=== PATIENT | male | born 1965 | race Caucasian/White ===

== ENCOUNTER 2017-08-14 17:13 | Emergency (ER) | payer SELFPAY ==
[2017-08-14] MEDS ORDERED: MECLIZINE HCL 12.5 MG TAB ONE (18:18)
[2017-08-14 18:35] LABS: Absolute Lymphocytes (CBC) 1.7 K/uL (0.7-4.9); Absolute Monocytes 0.4 K/uL (0.1-1.3); Absolute Neutrophil 5.1 K/uL (1.8-8.0); Basophils % 0.6 % (0-1.3); Hematocrit 45.2 % (39.6-49.0); MCH 31.2 pg (27.0-35.0); MCV 93.5 fL (80-100); MPV 9.3 fL (7.6-11.3); Monocytes % 5.6 % (3.3-12.3); RBC Red Blood Cell Count 4.83 M/uL (4.33-5.43)
[2017-08-14 18:39] LABS: Potassium 3.9 mEq/L (3.6-5.0)
[2017-08-14 18:45] LABS: Albumin 4.5 g/dL (3.2-5.5); Bilirubin Direct 0.1 mg/dL (0-0.2); Bilirubin Total 0.6 mg/dL (0.3-1.2); Protein, Total 7.9 g/dL (6.0-8.3)
--- NOTE | 2017-08-14 18:46 | RAD REPORT ---
EXAM DESCRIPTION: CT - Head Brain Wo Cont - 08/14/2017 6:31 pm CLINICAL HISTORY: Dizziness for 6 weeks COMPARISON: june 2016 TECHNIQUE: Computed axial tomography of the head was obtained. IV contrast was not requested. All CT scans are performed using dose optimization technique as appropriate and may include automated exposure control or mA/KV adjustment according to patient size. FINDINGS: An intracranial bleed is not seen . The ventricles are normal in caliber. No extra-axial fluid collection is noted. Fluid within the sinuses/ mastoids is not seen. IMPRESSION: No acute intracranial abnormality is seen. If patient's symptoms persist MRI of the bra in would be recommended.
--- NOTE | 2017-08-14 19:04 | ER ---
Nurse's Notes [facility] Name: Livan Pantoja Age: 52 yrs Sex: Male : 1965 Arrival Date: 08/14/2017 Time: 17:15 Bed 16 Private MD: Diagnosis: Vertigo Presentation: 08/14 17:15 Presenting complaint: Patient states: Dizziness x 6 weeks when standing or moving. aj Patient ambulated with steady gait to room. Transition of care: patient was not received from another setting of care. Onset of symptoms was June 21, 2017. Risk Assessment: Do you want to hurt yourself or someone else? Patient reports no desire to harm self or others. Care prior to arrival: None. 17:15 Method Of Arrival: Law Enforcement: April garcias 17:15 Acuity: MARYSOL 4 aj Triage Assessment: 17:19 General: Appears in no apparent distress. comfortable, Behavior is calm, cooperative, aj appropriate for age. Pain: Complains of pain in epigastric area, right upper quadrant and left upper quadrant. Neuro: Level of Consciousness is awake, alert, obeys commands, Oriented to person, place, time, situation, Herd Tester are equal bilaterally Moves all extremities. Full function Gait is steady, Speech is normal, Facial symmetry appears normal, Reports dizziness, since June 21. Respiratory: Airway is patent Respiratory effort is even, unlabored, Respiratory pattern is regular, symmetrical. GI: Reports upper abdominal pain, nausea. Derm: Skin is intact, is healthy with good turgor, Skin is pink, warm \T\ dry. normal. Historical: - Allergies: 17:19 PENICILLINS; aj - Home Meds: 17:19 naproxen 375 mg Oral tab 1 tab 2 times per day [Active]; ranitidine HCl 150 mg Oral cap aj 1 cap once daily [Active]; Tylenol PM Extra Strength 25-500 mg Oral tab 2 tabs nightly [Active]; - PMHx: 17:19 Hypertension; aj - PSHx: 17:19 None; aj - Immunization history:: Adult Immunizations up to date. - Social history:: Smoking status: Patient uses tobacco products, chewing tobacco. - Ebola Screening: : Patient negative for fever greater than or equal to 101.5 degrees Fahrenheit, and additional compatible Ebola Virus Disease symptoms Patient denies exposure to infectious person Patient denies travel to an Ebola-affected area in the 21 days before illness onset No symptoms or risks identified at this time. Screenin:14 Abuse screen: Denies threats or abuse. Denies injuries from another. Nutritional aj screening: No deficits noted. Tuberculosis screening: No symptoms or risk factors identified. Fall Risk None identified. Assessment: 19:14 Reassessment: see triage. aj Vital Signs: 17:19 BP 165 / 78; Pulse 89; Resp 16; Temp 97.9; Pulse Ox 97% on R/A; Weight 117.93 kg; aj Height 5 ft. 11 in. (180.34 cm); 17:19 Body Mass Index 36.26 (117.93 kg, 180.34 cm) aj ED Course: 17:15 Patient arrived in ED. aj 17:16 Triage completed. aj 17:19 Arm band placed on left wrist. Patient placed in an exam room. aj 17:23 Kishor Celeste PA is PHCP. jrDany 17:23 Nabor Fierro MD is Attending Physician. jr 18:14 Brigitte Abernathy, RN is Primary Nurse. aj 18:[address] 18:21 Initial lab(s) drawn, by ma, sent to lab. Inserted saline lock: 20 gauge in left 3 antecubital area, using aseptic technique. Blood collected. 18:32 CT Head Brain wo Cont In Process Unspecified. EDMS 19:14 Patient has correct armband on for positive identification. aj 19:14 No provider procedures requiring assistance completed. IV discontinued, intact, aj bleeding controlled, No redness/swelling at site. Pressure dressing applied. Administered Medications: 18:19 Drug: Meclizine 25 mg Route: PO; aj 19:13 Follow up: Response: No adverse reaction aj Outcome: 19:04 Discharge ordered by . jrDany 19:14 Discharged to Law Enforcement aj 19:14 Condition: good 19:14 Discharge instructions given to police, Instructed on discharge instructions, follow up and referral plans. Demonstrated understanding of instructions, follow-up care. 19:16 Patient left the ED. aj Signatures: Dispatcher [employer] EDMS Brigitte Abernathy, RN RN Kishor Pablo PA PA jr Candelaria Penny [facility]
--- NOTE | 2017-08-14 19:04 | EDPHYS ---
Physician Documentation [facility] Name: Livan Pantoja Age: 52 yrs Sex: Male : 1965 Arrival Date: 08/14/2017 Time: 17:15 Bed 16 Private MD: ED Physician Nabor Fierro HPI: 08/14 19:02 This 52 yrs old Male presents to ER via Law Enforcement with complaints of jr8 Dizziness. 19:02 The patient presents with dizziness. Onset: The symptoms/episode began/occurred jr8 gradually, 6 week(s) ago. Context: occurred at work, occurred while the patient was working. Modifying factors: The symptoms are alleviated by nothing, the symptoms are aggravated by movement of head, standing up, changing position. Associated signs and symptoms: The patient has no apparent associated signs or symptoms. Severity of symptoms: At their worst the symptoms were moderate in the emergency department the symptoms are unchanged. Patient's baseline: Neuro: alert and fully oriented, Motor: no deficits, Ambulation: walks without assistance, Speech: normal. The patient has experienced similar episodes in the past, several times. The patient has not recently seen a physician. Historical: - Allergies: 17:19 PENICILLINS; aj - Home Meds: 17:19 naproxen 375 mg Oral tab 1 tab 2 times per day [Active]; ranitidine HCl 150 mg Oral cap aj 1 cap once daily [Active]; Tylenol PM Extra Strength 25-500 mg Oral tab 2 tabs nightly [Active]; - PMHx: 17:19 Hypertension; aj - PSHx: 17:19 None; aj - Immunization history:: Adult Immunizations up to date. - Social history:: Smoking status: Patient uses tobacco products, chewing tobacco. - Ebola Screening: : Patient negative for fever greater than or equal to 101.5 degrees Fahrenheit, and additional compatible Ebola Virus Disease symptoms Patient denies exposure to infectious person Patient denies travel to an Ebola-affected area in the 21 days before illness onset No symptoms or risks identified at this time. ROS: 19:02 Eyes: Negative for injury, pain, redness, and discharge, ENT: Negative for injury, jr8 pain, and discharge, Neck: Negative for injury, pain, and swelling, Cardiovascular: Negative for chest pain, palpitations, and edema, Respiratory: Negative for shortness of breath, cough, wheezing, and pleuritic chest pain, Abdomen/GI: Negative for abdominal pain, nausea, vomiting, diarrhea, and constipation, Back: Negative for injury and pain, MS/Extremity: Negative for injury and deformity, Skin: Negative for injury, rash, and discoloration. 19:02 Neuro: Positive for dizziness, Negative for altered mental status, gait disturbance, headache, hearing loss, loss of consciousness, numbness, seizure activity, speech changes, syncope, near syncope, tingling, tinnitus, tremor, visual changes, weakness. Exam: 19:02 Head/Face: Normocephalic, atraumatic. Eyes: Pupils equal round and reactive to light, jr8 extra-ocular motions intact. Lids and lashes normal. Conjunctiva and sclera are non-icteric and not injected. Cornea within normal limits. Periorbital areas with no swelling, redness, or edema. ENT: Nares patent. No nasal discharge, no septal abnormalities noted. Tympanic membranes are normal and external auditory canals are clear. Oropharynx with no redness, swelling, or masses, exudates, or evidence of obstruction, uvula midline. Mucous membranes moist. Neck: Trachea midline, no thyromegaly or masses palpated, and no cervical lymphadenopathy. Supple, full range of motion without nuchal rigidity, or vertebral point tenderness. No Meningismus. Cardiovascular: Regular rate and rhythm with a normal S1 and S2. No gallops, murmurs, or rubs. Normal PMI, no JVD. No pulse deficits. Respiratory: Lungs have equal breath sounds bilaterally, clear to auscultation and percussion. No rales, rhonchi or wheezes noted. No increased work of breathing, no retractions or nasal flaring. Abdomen/GI: Soft, non-tender, with normal bowel sounds. No distension or tympany. No guarding or rebound. No evidence of tenderness throughout. Back: No spinal tenderness. No costovertebral tenderness. Full range of motion. Skin: Warm, dry with normal turgor. Normal color with no rashes, no lesions, and no evidence of cellulitis. MS/ Extremity: Pulses equal, no cyanosis. Neurovascular intact. Full, normal range of motion. Neuro: Awake and alert, GCS 15, oriented to person, place, time, and situation. Cranial nerves II-XII grossly intact. Motor strength 5/5 in all extremities. Sensory grossly intact. Cerebellar exam normal. Normal gait. Vital Signs: 17:19 BP 165 / 78; Pulse 89; Resp 16; Temp 97.9; Pulse Ox 97% on R/A; Weight 117.93 kg; aj Height 5 ft. 11 in. (180.34 cm); 17:19 Body Mass Index 36.26 (117.93 kg, 180.34 cm) aj MDM: 17:23 Patient medically screened. 8 19:03 Differential diagnosis: cardiac arrhythmia, CVA, idiopathic dizziness, vertigo, kidney jr8 failure, hyperglycemia, electrolyte imbalance . Data reviewed: vital signs, nurses notes, lab test result(s), radiologic studies, CT scan, and as a result, I will discharge patient. Data interpreted: Pulse oximetry: on room air is 97 %. Interpretation: normal. Counseling: I had a detailed discussion with the patient and/or guardian regarding: the historical points, exam findings, and any diagnostic results supporting the discharge/admit diagnosis, lab results, radiology results, the need for outpatient follow up, a neurologist, to return to the emergency department if symptoms worsen or persist or if there are any questions or concerns that arise at home. 08/14 18:06 Order name: CBC with Diff; Complete Time: 18:41 [facility] 08/14 18:06 Order name: Basic Metabolic Panel; Complete Time: 19:01 [facility] 08/14 18:06 Order name: LFT's; Complete Time: 19:01 8 08/14 18:06 Order name: CT Head Brain wo Cont; Complete Time: 19:01 [facility] 08/14 18:46 Order name: Urine Dipstick--Ancillary (enter results) bd 08/14 18:06 Order name: IV; Complete Time: 18:19 [facility] 08/14 18:06 Order name: Urine Dipstick-Ancillary (obtain specimen); Complete Time: 19:11 [facility] Administered Medications: 18:19 Drug: Meclizine 25 mg Route: PO; aj 19:13 Follow up: Response: No adverse reaction aj Disposition: 08/14/17 19:04 Discharged to Home. Impression: Vertigo . - Condition is Stable. - Discharge Instructions: Benign Positional Vertigo, Vertigo. - Medication Reconciliation Form, Thank You Letter, Antibiotic Education, Prescription Opioid Use form. - Follow up: Private Physician; When: 2 - 3 days; Reason: Recheck today's complaints, Continuance of care, Re-evaluation by your physician. - Problem is new. - Symptoms have improved. Addendum: 08/19/2017 15:24 Co-signature as Attending Physician, Nabor Fierro MD I agree with the assessment and k dr plan of care. Signatures: Dispatcher [employer] EDBrigitte Cabello RN RN aj Rittger, Kevin, MD MD kdr Roszak, Josh, PA PA jr8 Corrections: (The following items were deleted from the chart) 08/14 19:16 19:04 08/14/2017 19:04 Discharged to Home. Impression: Vertigo . Condition is Stable. aj Forms are Medication Reconciliation Form, Thank You Letter, Antibiotic Education, Prescription Opioid Use. Follow up: Private Physician; When: 2 - 3 days; Reason: Recheck today's complaints, Continuance of care, Re-evaluation by your physician. Problem is new. Symptoms have improved. jr8
[2017-08-14 19:26] LABS: Urine Blood TRACE (NEG); Urine Glucose NEGATIVE (NEG); Urine Protein 1+ (NEG); Urine Specific Gravity 1.025 (1.005-1.030); Urine pH 5.5 (5.0-7.0)
[2017-08-14 20:57] VITALS: BP 165/78; TEMP 97.9; O2SAT 97
== END 2017-08-14 19:16 | disposition home or self-care (01) ==
LOC: ER 17:13
DX: R42 Dizziness and giddiness (principal); I10 Essential (primary) hypertension; Z72.0 Tobacco use; Z88.0 Allergy status to penicillin
CPT/HCPCS: 36415; 70450; 80048; 80076; 81003; 85025; 99284

== ENCOUNTER 2018-12-22 15:55 | Emergency (ER) | payer SELFPAY ==
[2018-12-22] MEDS ORDERED: ASPIRIN 81 MG CHEWABLE TABLET ONE (16:45)
[2018-12-22] MEDS ORDERED: NA CHLORIDE 0.9% 1,000 ML ONE (16:45)
[2018-12-22] MEDS ORDERED: ONDANSETRON 4 MG/2 ML VIAL ONE (16:48)
[2018-12-22 16:49] LABS: Protime INR 0.96
[2018-12-22 16:51] LABS: Absolute Lymphocytes (CBC) 1.4 K/uL (0.7-4.9); Basophils % 0.8 % (0-1.3); Hematocrit 43.6 % (39.6-49.0); Lymphocytes % 19.8 % (15.3-44.8); MPV 9.1 fL (7.6-11.3); RBC Red Blood Cell Count 4.71 M/uL (4.33-5.43)
[2018-12-22 17:12] LABS: ALT/SGPT 36 U/L (12-78); AST/SGOT 25 U/L (15-37); Albumin 3.7 g/dL (3.4-5.0); Alkaline Phosphatase 97 U/L (45-117); BUN Blood Urea Nitrogen 11 mg/dL (7-18); Bicarbonate 27 mmol/L (21-32); Bilirubin Direct 0.2 mg/dL (0-0.2); Bilirubin Total 0.7 mg/dL (0.2-1.0); Glucose Level 94 mg/dL (74-106); Lipase 113 U/L (73-393); Magnesium 2.2 mg/dL (1.8-2.4); NT PRO-BNP 115 pg/mL (<125); Potassium 3.7 mmol/L (3.5-5.1); Protein, Total 7.5 g/dL (6.4-8.2); Sodium Level 138 mmol/L (136-145); Troponin (Emerg Dept Use Only) < 0.02 ng/mL (0.0-0.045)
--- NOTE | 2018-12-22 17:21 | RAD REPORT ---
EXAM DESCRIPTION: RAD - Chest Single View - 12/22/2018 5:12 pm CLINICAL HISTORY: CHEST PAIN Chest pain. COMPARISON: Chest Single View dated 06/24/2016; CHEST SINGLE VIEW dated 11/20/2012; CHEST SINGLE VIEW dated 11/19/2012; CHEST SINGLE VIEW dated 10/31/2012 FINDINGS: Portable technique limits examination quality. The lungs are grossly clear. The heart is normal in size. No displaced fractures. IMPRESSION: No acute intrathoracic process suspected.
--- NOTE | 2018-12-22 18:27 | RAD REPORT ---
EXAM DESCRIPTION: CTAbdomen Pelvis W Contrast - 12/22/2018 6:17 pm CLINICAL HISTORY: Abdominal pain. N/V/D;Abd pain COMPARISON: No comparisons TECHNIQUE: Biphasic CT imaging of the abdomen and pelvis was performed with 100 ml non-ionic IV cont rast. All CT scans are performed using dose optimization technique as appropriate and may include automated exposure control or mA/KV adjustment according to patient size. FINDINGS: The lung bases are clear. The liver, spleen, pancreas, adrenal glands and kidneys are within normal limits. No bowel obstruction, free air, free fluid or abscess. Sigmoid diverticulosis coli is present without diverticulitis. The appendix is normal. No evidence of significant lymphadenopathy. No suspicious bony findings. IMPRESSION: No acute intra-abdominal or pelvic finding. Sigmoid diverticulosis coli without diverticulitis.
--- NOTE | 2018-12-22 20:14 | ER ---
Nurse's Notes [facility] Name: Livan Pantoja Age: 53 yrs Sex: Male : 1965 Arrival Date: 12/22/2018 Time: 15:59 Bed 7 Private MD: Diagnosis: Chest pain, unspecified;Vomiting;Diarrhea, unspecified Presentation: 12/22 16:04 Presenting complaint: Patient states: N/V/D for the last three days, panic attack with la1 chest pain this morning. Transition of care: patient was not received from another setting of care. Onset of symptoms was December 22, 2018. Risk Assessment: Do you want to hurt yourself or someone else? Patient reports no desire to harm self or others. Initial Sepsis Screen: Does the patient meet any 2 criteria? No. Patient's initial sepsis screen is negative. Does the patient have a suspected source of infection? No. Patient's initial sepsis screen is negative. Care prior to arrival: None. 16:04 Method Of Arrival: Ambulatory la1 16:04 Acuity: MARYSOL 3 la1 Historical: - Allergies: 16:05 PENICILLINS; la1 - Home Meds: 20:19 naproxen 375 mg Oral tab 1 tab 2 times per day [Active]; ranitidine HCl 150 mg Oral cap ak1 1 cap once daily [Active]; Tylenol PM Extra Strength 25-500 mg Oral tab 2 tabs nightly [Active]; - PMHx: 16:05 Hypertension; la1 - PSHx: 20:19 None; ak1 - Immunization history:: Adult Immunizations up to date. - Social history:: Smoking status: Patient/guardian denies using tobacco. - Ebola Screening: : No symptoms or risks identified at this time. Screenin:07 Abuse screen: Denies threats or abuse. Denies injuries from another. Nutritional sv screening: No deficits noted. Tuberculosis screening: No symptoms or risk factors identified. Fall Risk None identified. Assessment: 16:35 General: Appears in no apparent distress. uncomfortable, well developed, Behavior is sv calm, cooperative, appropriate for age. Pain: Denies pain. Neuro: Level of Consciousness is awake, alert, obeys commands, Oriented to person, place, time, situation, Moves all extremities. Full function Gait is steady, Speech is normal, Reports numbness in palmar aspect of distal phalanx of right middle finger. Cardiovascular: Rhythm is sinus bradycardia. Respiratory: Airway is patent Respiratory effort is even, unlabored, Respiratory pattern is regular, symmetrical. GI: Abdomen is round Reports diarrhea, nausea, vomiting. Derm: Skin is pink, warm \T\ dry. 18:10 Reassessment: Patient appears in no apparent distress at this time. Patient and/or sv family updated on plan of care and expected duration. Pain level reassessed. Patient is alert, oriented x 3, equal unlabored respirations, skin warm/dry/pink. 18:32 Reassessment: Patient appears in no apparent distress at this time. Patient and/or sv family updated on plan of care and expected duration. Pain level reassessed. Patient is alert, oriented x 3, equal unlabored respirations, skin warm/dry/pink. 19:35 General: Appears in no apparent distress. comfortable, well developed, Behavior is ak1 calm, cooperative, appropriate for age. Neuro: Level of Consciousness is awake, alert, obeys commands, Oriented to person, place, time, situation, Moves all extremities. Full function Speech is normal. Cardiovascular: Rhythm is sinus rhythm with unifocal PVCs. Respiratory: Airway is patent Respiratory effort is even, unlabored, Respiratory pattern is regular, symmetrical. GI: Abdomen is round non-distended, Bowel sounds present X 4 quads. : No signs and/or symptoms were reported regarding the genitourinary system. EENT: No signs and/or symptoms were reported regarding the EENT system. Derm: Skin is pink, warm \T\ dry. Skin temperature is warm. Musculoskeletal: No signs and/or symptoms reported regarding the musculoskeletal system. 19:37 Reassessment: pt tolerated water for PO challenge, provider notified. ak1 20:26 Reassessment: Patient and/or family updated on plan of care and expected duration. Pain ea level reassessed. Patient is alert, oriented x 3, equal unlabored respirations, skin warm/dry/pink. Discharge instruction given to patient, verbalized the understanding of instruction. Pt left ED ambulatory. Vital Signs: 16:05 BP 164 / 87; Pulse 62; Resp 16; Temp 97.4; Pulse Ox 100% on R/A; Weight 113.4 kg; la1 Height 5 ft. 11 in. (180.34 cm); 17:00 BP 145 / 74; Pulse 61; Resp 16; Pulse Ox 98% on R/A; sv 17:50 BP 146 / 71; Pulse 62; Resp 16; Pulse Ox 98% ; sv 18:32 BP 144 / 78; Pulse 60; Resp 17; Pulse Ox 97% on R/A; sv 19:35 BP 137 / 75; Pulse 60; Resp 18; Temp 98.1; Pulse Ox 97% on R/A; Pain 2/10; ak1 20:18 BP 125 / 72; Pulse 58; Resp 17; Temp 98.0; Pulse Ox 97% on R/A; ak1 16:05 Body Mass Index 34.87 (113.40 kg, 180.34 cm) la1 ED Course: 15:59 Patient arrived in ED. mr 16:04 Triage completed. la1 16:05 Arm band placed on left wrist. la1 16:07 Suzi Gunn, RN is Primary Nurse. sv 16:07 Patient has correct armband on for positive identification. Bed in low position. Call sv light in reach. Door closed. Head of bed elevated. 16:08 Awaiting ED provider evaluation. sv 16:10 Corby Broderick PA is PHCP. cp 16:10 Nabor Fierro MD is Attending Physician. cp 16:34 EKG done, by corrosion control technician. reviewed by Corby GRUBER. sm3 16:35 Inserted saline lock: 20 gauge in right antecubital area, using aseptic technique. sv Blood collected. Flushed right antecubital with 5 ml normal saline. 16:57 Awaiting lab results. sv 17:13 XRAY Chest (1 view) In Process Unspecified. EDMS 18:[address] via wheelchair. sv 18:18 CT Abd/Pelvis - IV Contrast Only In Process Unspecified. EDMS 19:05 Primary Nurse role handed off by Suzi Gunn, IVÁN sv 19:20 Lisa Mancini, IVÁN is Primary Nurse. ak1 19:35 Troponin (emerg Dept Use Only): draw \T\ 1935 Sent. ak1 20:19 No provider procedures requiring assistance completed. ak1 20:23 IV discontinued, intact, bleeding controlled, No redness/swelling at site. Pressure ea dressing applied. Administered Medications: 16:53 Drug: Zofran 4 mg Route: IVP; Site: right antecubital; sv 17:22 Follow up: Response: No adverse reaction sv 16:53 Drug: Aspirin Chewable Tablet 81 mg {Note: Pt stated he took 3 81 mg tabs this sv morning.} Route: PO; 17:21 Follow up: Response: No adverse reaction sv 16:53 Drug: NS 0.9% 1000 ml Route: IV; Rate: 1000 ml/hr; Site: right antecubital; sv 20:27 Follow up: Response: No adverse reaction; IV Status: Completed infusion; IV Intake: ea 700ml Intake: 20:27 IV: 700ml; Total: 700ml. ea Outcome: 20:13 Discharge ordered by MD. cp 20:26 Discharged to home ambulatory. ea 20:26 Condition: stable 20:26 Discharge instructions given to patient, Instructed on discharge instructions, follow up and referral plans. medication usage, Demonstrated understanding of instructions, follow-up care, medications, Prescriptions given X 1. 20:27 Patient left the ED. ea Signatures: Dispatcher [employer] EDSuzi Waite, RN IVÁN olvera Christine Jolly, Chris, RN RN [email or web address] Lisa Mancini, RN RN [email or web address] Corby Broderick, ALLYN PA Chayito Ogden, RN Bibiana Simmons [email or web address]
--- NOTE | 2018-12-22 20:14 | EDPHYS ---
Physician Documentation [facility] Name: Livan Pantoja Age: 53 yrs Sex: Male : 1965 Arrival Date: 12/22/2018 Time: 15:59 Bed 7 Private MD: ED Physician Nabor Fierro HPI: 12/22 16:30 This 53 yrs old Male presents to ER via Ambulatory with complaints of cp Vomiting. 16:30 The patient or guardian reports chest pain that is located primarily in the anterior cp chest wall, left. Onset: today, 2 separate episodes that have now resolved. 16:30 The patient presents to the emergency department with nausea, that is mild, vomiting, cp that is intermittent, diarrhea, that is intermittent. Onset: The symptoms/episode began/occurred 3 day(s) ago. Possible causes: unknown. Patient reports he believes chest pain was due to anxiety, but wanted to be checked out. Historical: - Allergies: 16:05 PENICILLINS; la1 - Home Meds: 20:19 naproxen 375 mg Oral tab 1 tab 2 times per day [Active]; ranitidine HCl 150 mg Oral cap ak1 1 cap once daily [Active]; Tylenol PM Extra Strength 25-500 mg Oral tab 2 tabs nightly [Active]; - PMHx: 16:05 Hypertension; la1 - PSHx: 20:19 None; ak1 - Immunization history:: Adult Immunizations up to date. - Social history:: Smoking status: Patient/guardian denies using tobacco. - Ebola Screening: : No symptoms or risks identified at this time. ROS: 16:38 Eyes: Negative for injury, pain, redness, and discharge. cp 16:38 Constitutional: Negative for body aches, chills, fever, poor PO intake. 16:38 ENT: Negative for drainage from ear(s), ear pain, sore throat, difficulty swallowing, difficulty handling secretions. 16:38 Cardiovascular: Positive for chest pain, Negative for edema, palpitations. 16:38 Respiratory: Negative for cough, shortness of breath, wheezing. 16:38 Abdomen/GI: Positive for nausea, vomiting, and diarrhea, Negative for constipation, anorexia, dysphagia, black/tarry stool, rectal bleeding. 16:38 Back: Negative for pain at rest, pain with movement. 16:38 : Negative for urinary symptoms. 16:38 Skin: Negative for cellulitis, rash. 16:38 Neuro: Negative for altered mental status, dizziness, headache, syncope, weakness. 16:38 All other systems are negative. Exam: 16:37 ECG was reviewed by the Attending Physician. cp 16:42 Constitutional: The patient appears in no acute distress, alert, awake, cp non-diaphoretic, non-toxic, well developed, well nourished. 16:42 Head/Face: Normocephalic, atraumatic. cp 16:42 Eyes: Periorbital structures: appear normal, Conjunctiva: normal, no exudate, no injection, Sclera: no appreciated abnormality, Lids and lashes: appear normal, bilaterally. 16:42 ENT: External ear(s): are unremarkable, Nose: is normal, Mouth: is normal, Posterior pharynx: is normal, airway is patent, no erythema, no exudate. 16:42 Neck: ROM/movement: is normal, is supple, without pain, no range of motions limitations, no nuchal rigidity. 16:42 Chest/axilla: Inspection: normal, Palpation: is normal, no crepitus, no tenderness. 16:42 Cardiovascular: Rate: normal, Rhythm: regular, Edema: is not appreciated, JVD: is not appreciated. 16:42 Respiratory: the patient does not display signs of respiratory distress, Respirations: normal, no use of accessory muscles, no retractions, no splinting, no tachypnea, labored breathing, is not present, Breath sounds: are clear throughout, no decreased breath sounds, no stridor, no wheezing. 16:42 Abdomen/GI: Inspection: abdomen appears normal, Bowel sounds: active, all quadrants, Palpation: soft, in all quadrants, mild abdominal tenderness, in all quadrants, rebound tenderness, is not appreciated, voluntary guarding, is not appreciated, involuntary guarding, is not appreciated. 16:42 Back: pain, is absent, ROM is normal. 16:42 Skin: no rash present. 16:42 Neuro: Orientation: to person, place \T\ time. Mentation: is normal, Motor: moves all fours, strength is normal. 19:35 ECG was reviewed by the Attending Physician. cp Vital Signs: 16:05 BP 164 / 87; Pulse 62; Resp 16; Temp 97.4; Pulse Ox 100% on R/A; Weight 113.4 kg; la1 Height 5 ft. 11 in. (180.34 cm); 17:00 BP 145 / 74; Pulse 61; Resp 16; Pulse Ox 98% on R/A; sv 17:50 BP 146 / 71; Pulse 62; Resp 16; Pulse Ox 98% ; sv 18:32 BP 144 / 78; Pulse 60; Resp 17; Pulse Ox 97% on R/A; sv 19:35 BP 137 / 75; Pulse 60; Resp 18; Temp 98.1; Pulse Ox 97% on R/A; Pain 2/10; ak1 20:18 BP 125 / 72; Pulse 58; Resp 17; Temp 98.0; Pulse Ox 97% on R/A; ak1 16:05 Body Mass Index 34.87 (113.40 kg, 180.34 cm) la1 MDM: 16:16 Patient medically screened. cp 20:10 The patient was not given aspirin in the Emergency Department. Patient reports taking cp aspirin within the past 24 hours. 20:10 Data reviewed: vital signs, nurses notes, lab test result(s), EKG, radiologic studies, cp CT scan, plain films. Test interpretation: by ED physician or midlevel provider: ECG, chest xray negative for infiltrates. Counseling: I had a detailed discussion with the patient and/or guardian regarding: the historical points, exam findings, and any diagnostic results supporting the discharge/admit diagnosis, lab results, radiology results, the need for outpatient follow up, a family practitioner, to return to the emergency department if symptoms worsen or persist or if there are any questions or concerns that arise at home. Response to treatment: the patient's symptoms have markedly improved after treatment, VSS. No chest pain reported by patient while in ED and vomiting resolved. Will discharge to home for continued monitoring. 12/22 16:25 Order name: Basic Metabolic Panel; Complete Time: 17:53 cp 12/22 17:53 Interpretation: Normal except: CA 8.3. cp 12/22 16:25 Order name: CBC with Diff; Complete Time: 17:54 cp 12/22 17:54 Interpretation: Normal except: EOSINOPHIL % 5.1. cp 12/22 16:25 Order name: LFT's; Complete Time: 17:53 cp 12/22 17:55 Interpretation: Normal except: GLOB 3.8; A/G 1.0. cp 12/22 16:25 Order name: Magnesium; Complete Time: 17:53 cp 12/22 16:25 Order name: NT PRO-BNP; Complete Time: 17:53 cp 12/22 16:25 Order name: PT-INR cp 12/22 16:25 Order name: Troponin (emerg Dept Use Only); Complete Time: 17:53 cp 12/22 16:25 Order name: XRAY Chest (1 view); Complete Time: 17:53 cp 12/22 17:56 Interpretation: Report review. cp 12/22 16:25 Order name: Lipase; Complete Time: 17:53 cp 12/22 17:59 Interpretation: LIP 113; Reviewed. 12/22 18:01 Order name: Troponin (emerg Dept Use Only): draw \T\ 1934 sv 12/22 18:02 Order name: CT Abd/Pelvis - IV Contrast Only; Complete Time: 18:57 cp 12/22 16:25 Order name: EKG; Complete Time: 16:26 cp 12/22 16:25 Order name: Cardiac monitoring; Complete Time: 16:54 cp 12/22 16:25 Order name: EKG - Nurse/Tech; Complete Time: 16:54 cp 12/22 16:25 Order name: IV Saline Lock; Complete Time: 16:54 cp 12/22 16:25 Order name: Labs collected and sent; Complete Time: 16:54 cp 12/22 16:25 Order name: O2 Per Protocol; Complete Time: 16:54 cp 12/22 16:25 Order name: O2 Sat Monitoring; Complete Time: 16:54 cp 12/22 17:59 Order name: PO challenge; Complete Time: 19:29 cp 12/22 18:01 Order name: EKG - Nurse/Tech: to be done \T; Complete Time: 19:35 sv EC:37 Rate is 61 beats/min. Rhythm is regular. NJ interval is normal. QRS interval is normal. cp QT interval is normal. Interpreted by me. Reviewed by me. 19:35 Rate is 64 beats/min. Rhythm is regular. NJ interval is normal. QRS interval is normal. cp QT interval is normal. Interpreted by me. Reviewed by me. Administered Medications: 16:53 Drug: Zofran 4 mg Route: IVP; Site: right antecubital; sv 17:22 Follow up: Response: No adverse reaction sv 16:53 Drug: Aspirin Chewable Tablet 81 mg {Note: Pt stated he took 3 81 mg tabs this sv morning.} Route: PO; 17:21 Follow up: Response: No adverse reaction sv 16:53 Drug: NS 0.9% 1000 ml Route: IV; Rate: 1000 ml/hr; Site: right antecubital; sv 20:27 Follow up: Response: No adverse reaction; IV Status: Completed infusion; IV Intake: ea 700ml Disposition: 12/22/18 20:13 Discharged to Home. Impression: Chest pain, unspecified, Vomiting, Diarrhea, unspecified. - Condition is Stable. - Discharge Instructions: Diverticulosis, Food Choices to Help Relieve Diarrhea, Adult, Nonspecific Chest Pain, Diarrhea, Adult, Aspirin and Your Heart, Vomiting, Adult. - Prescriptions for Zofran 4 mg Oral Tablet - take 1 tablet by ORAL route every 12 hours As needed; 20 tablet. - Medication Reconciliation Form, Thank You Letter, Antibiotic Education, Prescription Opioid Use form. - Follow up: Private Physician; When: 2 - 3 days; Reason: Recheck today's complaints. - Problem is new. - Symptoms have improved. Signatures: Dispatcher [employer] Suzi Barney RN Chris Worthy RN RN la1 Lisa Mancini RN RN ak1 Corby Broderick PA PA cp Antunez, Elena, RN RN ea Corrections: (The following items were deleted from the chart) 17:53 17:53 Normal except. cp cp 20:27 20:13 12/22/2018 20:13 Discharged to Home. Impression: Chest pain, unspecified; ea Vomiting; Diarrhea, unspecified. Condition is Stable. Forms are Medication Reconciliation Form, Thank You Letter, Antibiotic Education, Prescription Opioid Use. Follow up: Private Physician; When: 2 - 3 days; Reason: Recheck today's complaints. Problem is new. Symptoms have improved. cp
[2018-12-22 21:02] VITALS: O2SAT 97
[2018-12-22 21:05] VITALS: BP 125/72; TEMP 98
--- NOTE | 2018-12-23 05:15 | EKG ---
Test Date: 2018-12-22 Test Time: 16:31:01 Tank Bottom Assembler: BUZZ MEASUREMENT RESULTS: Intervals: Rate: 61 WV: 166 QRSD: 98 QT: 396 QTc: 398 [place]: P: 35 WV: 166 QRS: 57 T: 49 INTERPRETIVE STATEMENTS: Normal sinus rhythm Normal ECG Compared to ECG 06/25/2016 07:24:52 Sinus bradycardia no longer present Electronically Signed On 12-23-18 05:14:07 CDT by Fer Armstrong
--- NOTE | 2018-12-23 10:18 | EKG ---
Test Date: 2018-12-22 Test Time: 19:28:26 Sample Shoe Inspector And Reworker: ARMANI MEASUREMENT RESULTS: Intervals: Rate: 64 CA: 168 QRSD: 92 QT: 394 QTc: 406 [place]: P: 44 CA: 168 QRS: 39 T: 46 INTERPRETIVE STATEMENTS: Sinus rhythm with premature atrial complexes Otherwise normal ECG Compared to ECG 12/22/2018 16:31:01 Atrial premature complex(es) now present Electronically Signed On 12-23-18 10:18:19 CDT by Keaton Roman
== END 2018-12-22 20:27 | disposition home or self-care (01) ==
LOC: ER 15:55
DX: R11.10 Vomiting, unspecified (principal); R19.7 Diarrhea, unspecified; I10 Essential (primary) hypertension; Z88.0 Allergy status to penicillin
CPT/HCPCS: 36415; 71045; 74177; 80048; 80076; 83690; 83735; 83880; 84484; 85025; 85610; 93005; 96361; 96374; 99285; J2405; J7030; Q9967

== ENCOUNTER 2020-10-02 09:40 | Inpatient (IN) | payer SELFPAY ==
--- NOTE | 2020-10-02 11:05 | RAD REPORT ---
EXAM DESCRIPTION: RAD - Chest Pa And Lat (2 Views) - 10/02/2020 10:39 am CLINICAL HISTORY: COUGH COMPARISON: Portable December 2018 TECHNIQUE: Frontal and lateral views of the chest were obtained. FINDINGS: The lungs are underinflated with bilateral airspace opacification present somewhat sparing the left apex. Given the provided history moderate severity COVID-19 pneumonia is the most likely et iology. Heart size is normal and central vasculature is within normal limits. No pleural effusion or pneumothorax seen. No acute bony finding noted. No aortic abnormality. IMPRESSION: Moderate severity bilateral COVID-19 pneumonia.
[2020-10-02] MEDS ORDERED: METHYLPREDNISOLONE 125 MG INJ ONE (12:00)
[2020-10-02] MEDS ORDERED: NA CHLORIDE 0.9% 1,000 ML ONE (12:00)
[2020-10-02 12:24] LABS: Absolute Lymphocytes (CBC) 0.8 K/uL (0.7-4.9); Basophils % 0.2 % (0-1.3); Hematocrit 47.3 % (39.6-49.0); Lymphocytes % 11.3 % (15.3-44.8); MPV 9.2 fL (7.6-11.3); RBC Red Blood Cell Count 5.03 M/uL (4.33-5.43)
[2020-10-02 14:08] LABS: BUN Blood Urea Nitrogen 14 mg/dL (7-18); Bicarbonate 29 mmol/L (21-32); Glucose Level 95 mg/dL (74-106); Potassium 3.8 mmol/L (3.5-5.1); Sodium Level 137 mmol/L (136-145); Troponin (Emerg Dept Use Only) < 0.02 ng/mL (0.0-0.045)
[2020-10-02 14:23] LABS: Ferritin 1108.8 ng/mL (26-388)
--- NOTE | 2020-10-02 18:10 | ER ---
Nurse's Notes [facility] Name: Livan Pantoja Age: 55 yrs Sex: Male : 1965 Arrival Date: 10/02/2020 Time: 09:40 Bed 13 Private MD: Diagnosis: Pneumonia due to SARS-associated coronavirus;Dehydration;Hypoxemia Presentation: 10/02 10:01 Chief complaint: Patient states: Ill for 10 days. Diagnosed with COVID on Thursday. Pt is ss concerned because his shortness of breath is getting worse and is unable to eat because he has no appetite. Coronavirus screen: Client presents with at least one sign or symptom that may indicate coronavirus-19. Standard/surgical mask placed on the client. Provider contacted for isolation considerations. Ebola Screen: Patient denies exposure to infectious person. Patient denies travel to an Ebola-affected area in the 21 days before illness onset. Initial Sepsis Screen: Does the patient meet any 2 criteria? RR > 20 per min. Does the patient have a suspected source of infection? No. Patient's initial sepsis screen is negative. Risk Assessment: Do you want to hurt yourself or someone else? Patient reports no desire to harm self or others. Onset of symptoms was September 22, 2020. 10:01 Method Of Arrival: Ambulatory ss 10:01 Acuity: MARYSOL 3 ss Historical: - Allergies: 10:03 PENICILLINS; ss - Home Meds: 10:03 None [Active]; ss - PMHx: 10:03 Hypertension; Anxiety; ss - PSHx: 10:03 None; ss - Immunization history:: Adult Immunizations unknown, Client reports having NOT received the Covid vaccine. - Social history:: Smoking status: Patient reports use of chewing tobacco. - Family history:: not pertinent. - Hospitalizations: : No recent hospitalization is reported. Screenin:17 Abuse screen: Denies threats or abuse. Nutritional screening: No deficits noted. ll1 Tuberculosis screening: No symptoms or risk factors identified. 13:44 Fall Risk IV access (20 points). Total Spring Fall Scale indicates No Risk (0-24 pts). ll1 Assessment: 11:15 General: Appears ill, Behavior is calm, cooperative, appropriate for age. Pain: Denies ll1 pain. Neuro: No deficits noted. Cardiovascular: No deficits noted. Respiratory: Reports shortness of breath cough that is Airway is patent Trachea midline Respiratory effort is even, labored, Respiratory pattern is tachypnea Breath sounds are diminished bilaterally. Onset: The symptoms/episode began/occurred yesterday. GI: Abdomen is flat, Bowel sounds present X 4 quads. Reports diarrhea, nausea. 12:15 Reassessment: No changes from previously documented assessment. Patient and/or family ll1 updated on plan of care and expected duration. Pain level reassessed. 13:15 Reassessment: No changes from previously documented assessment. Patient and/or family ll1 updated on plan of care and expected duration. Pain level reassessed. Patient is alert, oriented x 3, equal unlabored respirations, skin warm/dry/pink. Patient states feeling better. 14:15 Reassessment: No changes from previously documented assessment. Patient and/or family ll1 updated on plan of care and expected duration. Pain level reassessed. Patient is alert, oriented x 3, equal unlabored respirations, skin warm/dry/pink. 15:15 Reassessment: No changes from previously documented assessment. Patient and/or family ll1 updated on plan of care and expected duration. Pain level reassessed. Patient is alert, oriented x 3, equal unlabored respirations, skin warm/dry/pink. 16:15 Reassessment: No changes from previously documented assessment. Patient and/or family ll1 updated on plan of care and expected duration. Pain level reassessed. resting, to be admitted.. Vital Signs: 10:01 BP 127 / 66; Pulse 76; Resp 23; Temp 98.4(TE); Pulse Ox 94% on R/A; Weight 129.27 kg; Height 5 ft. 11 in. (180.34 cm); Pain 8/10; 13:40 BP 121 / 63; Pulse 74; Resp 22; Pulse Ox 93% on R/A; ll1 14:47 Pulse Ox 87% ; rn 16:42 BP 141 / 68; Pulse 68; Resp 22; Pulse Ox 95% on R/A; ll1 10:01 Body Mass Index 39.75 (129.27 kg, 180.34 cm) ED Course: 09:40 Patient arrived in ED. as 10:03 Triage completed. 10:03 Arm band placed on right wrist. 10:24 XRAY Chest Pa And Lat (2 Views) In Process Unspecified. EDMS 11:13 Stephan Hart, RN is Primary Nurse. ll1 11:13 Tony Smith MD is Attending Physician. rn 11:18 Patient has correct armband on for positive identification. Bed in low position. Call ll1 light in reach. Side rails up X 1. Pulse ox on. NIBP on. 11:52 Inserted saline lock: 22 gauge in right antecubital area, using aseptic technique. ll1 Blood collected. 14:49 Christel Cerna MD is Hospitalizing Provider. rn 19:58 No provider procedures requiring assistance completed. Patient admitted, IV remains in ad5 place. Administered Medications: 11:51 Drug: NS 0.9% 1000 ml Route: IV; Rate: 1000 ml; Site: right antecubital; ll1 16:46 Follow up: Response: No adverse reaction; IV Status: Completed infusion; IV Intake: ll1 1000ml 11:51 Drug: SOLU-Medrol (methylPrednisoLONE) 125 mg Route: IVP; Site: right antecubital; ll1 16:46 Follow up: Response: No adverse reaction; RASS: Alert and Calm (0) ll1 Intake: 16:46 IV: 1000ml; Total: 1000ml. ll1 Outcome: 14:49 Decision to Hospitalize by Provider. rn 19:58 Admitted to ER Hold. Please see [facility] for further documentation. ad5 19:58 Condition: stable 19:58 Instructed on the need for admit, Demonstrated understanding of instructions. 10/06 13:59 Patient left the ED. eb Signatures: Dispatcher [employer] EDMS Magaly Silva Roman, MD MD rn Smirch, Shelby, RN RN Kayla Gómez Stephan Hart, IVÁN RN [facility] Marcial Villaseñor ad5
--- NOTE | 2020-10-02 18:10 | EDPHYS ---
Physician Documentation [facility] Name: Livan Pantoja Age: 55 yrs Sex: Male : 1965 Arrival Date: 10/02/2020 Time: 09:40 Bed 13 Private MD: ED Physician Tony Smith HPI: 10/02 12:53 This 55 yrs old Male presents to ER via Ambulatory with complaints of Covid+- rn symptoms worsening. 12:53 The patient has shortness of breath at rest, with light activity. Onset: The rn symptoms/episode began/occurred 1 week(s) ago. Duration: The symptoms are continuous. The patient's shortness of breath is aggravated by exertion, light activity, is alleviated by nothing. Associated signs and symptoms: Pertinent positives: non-productive cough, fever, Pertinent negatives: hemoptysis, vomiting. Severity of symptoms: At their worst the symptoms were moderate in the emergency department the symptoms are unchanged. The patient has not experienced similar symptoms in the past. The patient has not recently seen a physician. Patient states tested positive for Covid recently over the weekend, sick for 1 week, multiple coworkers are sick as well. Feels like symptoms are worsening, namely shortness of breath with exertion and cough. No nausea/vomiting/diarrhea. No chest pain.. Historical: - Allergies: 10:03 PENICILLINS; ss - Home Meds: 10:03 None [Active]; ss - PMHx: 10:03 Hypertension; Anxiety; ss - PSHx: 10:03 None; ss - Immunization history:: Adult Immunizations unknown, Client reports having NOT received the Covid vaccine. - Social history:: Smoking status: Patient reports use of chewing tobacco. - Family history:: not pertinent. - Hospitalizations: : No recent hospitalization is reported. 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 Exam: 12:53 Constitutional: This is a well developed, well nourished patient who is awake, alert, rn mild to moderate tachypnea, appears weak Head/Face: Normocephalic, atraumatic. Eyes: Pupils equal round and reactive to light, extra-ocular motions intact. Lids and lashes normal. Conjunctiva and sclera are non-icteric and not injected. Cornea within normal limits. Periorbital areas with no swelling, redness, or edema. ENT: Dry mucous membranes Cardiovascular: Regular rate and rhythm. No pulse deficits. Respiratory: Mild to moderate tachypnea Abdomen/GI: Soft, non-tender Skin: Warm, dry, no cyanosis MS/ Extremity: Pulses equal, no cyanosis. Neurovascular intact. Full, normal range of motion. Equal circumference. Neuro: Awake and alert, GCS 15, oriented to person, place, time, and situation. Cranial nerves II-XII grossly intact. Motor strength 4/5 in all extremities. Sensory grossly intact. Cerebellar exam normal. Vital Signs: 10:01 BP 127 / 66; Pulse 76; Resp 23; Temp 98.4(TE); Pulse Ox 94% on R/A; Weight 129.27 kg; ss Height 5 ft. 11 in. (180.34 cm); Pain 8/10; 13:40 BP 121 / 63; Pulse 74; Resp 22; Pulse Ox 93% on R/A; ll1 14:47 Pulse Ox 87% ; rn 16:42 BP 141 / 68; Pulse 68; Resp 22; Pulse Ox 95% on R/A; ll1 10:01 Body Mass Index 39.75 (129.27 kg, 180.34 cm) ss MDM: 11:13 Patient medically screened. rn 14:47 Differential diagnosis: Myocardial Infarction pneumonia, Pneumothorax covid. Data rn reviewed: vital signs, nurses notes, lab test result(s), EKG, radiologic studies, plain films, and as a result, I will admit patient. Counseling: I had a detailed discussion with the patient and/or guardian regarding: the historical points, exam findings, and any diagnostic results supporting the discharge/admit diagnosis, lab results, radiology results, the need for further work-up and treatment in the hospital. Response to treatment: the patient's symptoms have mildly improved after treatment, and as a result, I will admit patient. Admission orders: after a detailed discussion of the patient's condition and case, the admit orders are written by me. ED course: Patient states mild improvement. Covid positive with moderate pneumonia on x-ray. At rest oxygenation dips to 87%. Will admit to Dr. Cerna. 10/02 11:20 Order name: CBC with Diff rn 10/02 11:20 Order name: Basic Metabolic Panel rn 10/02 11:20 Order name: Ferritin; Complete Time: 14:44 rn 10/02 11:20 Order name: CRP; Complete Time: 14:44 rn 10/02 11:20 Order name: Troponin (emerg Dept Use Only); Complete Time: 14:44 rn 10/02 11:20 Order name: CBC with Automated Diff; Complete Time: 13:43 EDMS 10/02 11:20 Order name: Basic Metabolic Panel; Complete Time: 14:44 EDMS 10/02 23:46 Order name: Procalcitonin; Complete Time: 07:00 EDMS 10/03 04:56 Order name: CBC with Automated Diff; Complete Time: 07:00 EDMS 10/03 05:19 Order name: Manual Differential; Complete Time: 07:00 EDMS 10/03 05:24 Order name: Comprehensive Metabolic Panel; Complete Time: 07:00 EDMS 10/03 05:24 Order name: Phosphorus; Complete Time: 07:00 EDMS 10/03 05:24 Order name: Lipid Profile; Complete Time: 07:00 EDMS 10/03 05:24 Order name: C-Reactive Protein; Complete Time: 07:00 EDMS 10/03 05:24 Order name: T4 Free; Complete Time: 07:00 EDMS 10/03 05:24 Order name: Magnesium; Complete Time: 07:00 EDMS 10/03 05:24 Order name: Thyroid Stimulating Hormone; Complete Time: 07:00 EDMS 10/03 05:24 Order name: Ferritin; Complete Time: :00 EDMS 10/03 16:20 Order name: Phosphorus EDMS 10/03 16:20 Order name: Magnesium EDMS 10/04 05:24 Order name: CBC with Automated Diff EDMS 10/04 05:53 Order name: Comprehensive Metabolic Panel EDMS 10/04 05:53 Order name: Phosphorus EDMS 10/04 05:53 Order name: C-Reactive Protein EDMS 10/04 05:53 Order name: Ferritin EDMS 10/05 05:33 Order name: Basic Metabolic Panel EDMS 10/05 05:33 Order name: C-Reactive Protein EDMS 10/05 05:50 Order name: Ferritin EDMS 10/05 18:39 Order name: CORONAVIRUS EDMS 10/05 19:59 Order name: SARS-COV-2 RT PCR EDMS 10/02 09:54 Order name: XRAY Chest Pa And Lat (2 Views); Complete Time: 11:13 rn 10/02 11:20 Order name: IV Start; Complete Time: 11:20 rn 10/02 18:23 Order name: CONS Physician Consult EDMS 10/02 20:34 Order name: CT; Complete Time: 07:00 EDMS 10/06 05:55 Order name: C-Reactive Protein EDMS 10/06 05:55 Order name: Ferritin EDMS 10/06 08:08 Order name: CBC with Automated Diff EDMS 10/06 08:27 Order name: Basic Metabolic Panel EDMS 10/06 08:27 Order name: Phosphorus EDMS 10/06 08:27 Order name: C-Reactive Protein EDMS 10/06 08:27 Order name: Magnesium EDMS 10/06 08:27 Order name: Ferritin EDMS 10/06 08:54 Order name: CBC Smear Scan EDMS Administered Medications: 11:51 Drug: NS 0.9% 1000 ml Route: IV; Rate: 1000 ml; Site: right antecubital; ll1 16:46 Follow up: Response: No adverse reaction; IV Status: Completed infusion; IV Intake: ll1 1000ml 11:51 Drug: SOLU-Medrol (methylPrednisoLONE) 125 mg Route: IVP; Site: right antecubital; ll1 16:46 Follow up: Response: No adverse reaction; RASS: Alert and Calm (0) ll1 Disposition Summary: 10/02/20 14:49 Hospitalization Ordered Hospitalization Status: Inpatient Admission rn Provider: Christel Cerna rn Condition: Stable rn Problem: new rn Symptoms: have improved rn Bed/Room Type: Standard rn Location: [facility] ER HOLD(10/02/20 17:17) ss Room Assignment: ERHOLD-(10/02/20 17:17) ss Diagnosis - Pneumonia due to SARS-associated coronavirus rn - Dehydration rn - Hypoxemia rn Forms: - Medication Reconciliation Form rn - SBAR form rn Signatures: Dispatcher [employer] EDTony Enriquez MD MD rn Smirch, Shelby, RN RN ss Lewis, Lynsay, RN RN ll1 Corrections: (The following items were deleted from the chart) : 14:49 Telemetry/MedSurg (Inpatient) coretta barnard 17: 14:49 coretta barnard
--- NOTE | 2020-10-02 19:32 | P.HP ---
Certification for Inpatient Patient admitted to: Inpatient With expected LOS: >2 Midnights Patient will require the following post-hospital care: None Practitioner: I am a practitioner with admitting privileges, knowledge of patient current condition, hospital course, and medical plan of care. Services: Services provided to patient in accordance with Admission requirements found in Title 42 Section 412.3 of the Code of Federal Regulations Patient History Date of Service: 10/02/20 Reason for admission: covid pneumonia History of Present Illness: Mr. Pantoja is a 55 yo obese male who presents with 1 week of worsening SOB, cough and fever. He reports symptoms worse with exertion. He tested positive for COVID over the weekend. Reports wheezing, pleuritic pain, [place], anorexia, nausea, vomiting, and diarrhea. Ferritin 1108. CRP 43. CXR shows moderate covid pneumonia. O2 sats 87% on room air. Allergies Penicillins Allergy (Intermediate, Verified 11/19/12 20:35) Nausea/Vomiting Home Medications: ALPRAZolam [Xanax] 0.25 mg PO DAILY PRN #30 tab 06/25/16 - Past Medical/Surgical History Diabetic: No -: anxiety Past Surgical History: Patient denies surgical history Psychosocial/ Personal History: Dip tobaco; used to drink heavily, quit 5 months ago. - Family History Family History: Reviewed- Non-Contributory - Social History Smoking Status: Former smoker Alcohol use: No CD- Drugs: No Caffeine use: No Place of Residence: Home Review of Systems General: Fever, Chills, Sweats Respiratory: Cough, Shortness of Breath, SOB with Excertion, Pleuritic Pain, Wheezing Gastrointestinal: Nausea, Vomiting, Diarrhea Physical Examination - Physical Exam General: Alert, In no apparent distress HEENT: Atraumatic, PERRLA, Mucous membr. moist/pink, EOMI, Sclerae nonicteric Neck: Supple, 2+ carotid pulse no bruit, No LAD, Without JVD or thyroid abnormality Respiratory: Diminished, Expiratory wheezes Cardiovascular: Regular rate/rhythm, Normal S1 S2 Gastrointestinal: Normal bowel sounds, No tenderness Musculoskeletal: No tenderness Integumentary: No rashes Neurological: Normal speech, Normal strength at 5/5 x4 extr, Normal tone, Normal affect Lymphatics: No axilla or inguinal lymphadenopathy - Studies Laboratory Data (last 24 hrs) 10/02/20 11:25: Sodium 137, Potassium 3.8, BUN 14, Creatinine 1.07, Glucose 95 10/02/20 11:25: WBC 6.70, Hgb 16.4, Hct 47.3, Plt Count 164 Assessment and Plan - Problems (Diagnosis) (1) Pneumonia due to COVID-19 virus Current Visit: Yes Status: Acute (2) Anxiety Current Visit: Yes Status: Chronic - Plan pulm consulted, RT consulted IV steroids BID, continue covid supplements, ivermectin x2 doses O2 and breathing treatments as needed CT scan pending daily room air sats, sats for home O2 DVT ppx Discharge Plan: Home Plan to discharge in: 72 Hours - Advance Directives Does patient have a Living Will: No Does patient have a Durable POA for Healthcare: No - Code Status/Comfort Care Code Status Assessed: Yes (full code) Critical Care: No Time Spent Managing Pts Care (In Minutes): 70
[2020-10-02] MEDS ORDERED: ALBUTEROL 2.5 MG/3 ML NEB SOL NEB SCH (20:00)
[2020-10-02] MEDS ORDERED: MELATONIN 5 MG TABLET PO PRN (20:00)
[2020-10-02] MEDS ORDERED: ONDANSETRON 4 MG/2 ML VIAL IV PRN (20:00)
[2020-10-02] MEDS ORDERED: IPRATROPIUM BROM 0.5MG/2.5ML NEB PRN (20:00)
--- NOTE | 2020-10-02 20:33 | RAD REPORT ---
EXAM DESCRIPTION: CT - Chest For Pe Angio - 10/02/2020 8:25 pm CLINICAL HISTORY: Chest pain. covid pneumonia COMPARISON: Chest For Pe Angio dated 06/25/2016; Chest Single View dated 12/22/2018 TECHNIQUE: CT angiogram of the pulmonary arteries was performed with MIP. All CT scans are performed using dose optimization technique as appropriate and may include automated exposure control or mA/KV adjustment according to patient size. FINDINGS: No evidence of pulmonary thromboembolism. No acute aortic finding demonstrated. Moderate ground-glass lung opacities are present bilaterally compatible with COVID-19 infection. No significant pericardial or pleural fluid. No concerning bony finding. IMPRESSION: No evidence of pulmonary thromboembolism. Moderate findings of COVID-19 infection in the lungs.
[2020-10-02] MEDS ORDERED: BENZONATATE 100 MG CAP PO ONE (20:40)
[2020-10-02] MEDS ORDERED: ASCORBIC ACID 500 MG TABLET ONE (20:41)
[2020-10-02] MEDS ORDERED: METHYLPREDNISOLONE 40 MG INJ ONE (20:41)
[2020-10-02] MEDS ORDERED: FAMOTIDINE 20 MG TAB ONE (20:41)
[2020-10-02] MEDS: BENZONATATE 100 MG CAP PO PRN (21:00)
[2020-10-02] MEDS: FAMOTIDINE 20 MG TAB PO SCH (21:00)
[2020-10-02] MEDS: ASCORBIC ACID 500 MG TABLET PO SCH (21:00)
[2020-10-02] MEDS: METHYLPREDNISOLONE 125 MG INJ IV SCH (21:00)
--- NOTE | 2020-10-02 21:26 | P.CNS ---
Date of Consult: 10/02/20 Reason for Consult: COVID penumonia Chief Complaint: covid pneumonia History of Present Illness: AGe 55 AW resp failure from COVID penumonia/ Ferrtin elevated Allergies Penicillins Allergy (Intermediate, Verified 10/03/20 02:10) Nausea/Vomiting Home Medications: NK [No Home Meds] 10/03/20 - Past Medical/Surgical History Diabetic: No -: anxiety Psychosocial/ Personal History: Dip tobaco; used to drink heavily, quit 5 months ago. - Social History Smoking Status: Former smoker Alcohol use: No CD- Drugs: No Caffeine use: No Place of Residence: Home Physical Examination Laboratory Data (last 24 hrs) 10/02/20 11:25: Sodium 137, Potassium 3.8, BUN 14, Creatinine 1.07, Glucose 95 10/02/20 11:25: WBC 6.70, Hgb 16.4, Hct 47.3, Plt Count 164 - Problems (1) Pneumonia due to COVID-19 virus Current Visit: Yes Status: Acute Plan: AGe 55 / NOt vaccinated/ AW resp faiure/ Labs VS reviewed/ CW steroids
[2020-10-02 22:37] VITALS: BMI 39.0
[2020-10-03] MEDS: MORPHINE 2 MG/ML SYR IV PRN ×2 (01:54→21:17)
[2020-10-03] MEDS ORDERED: ONDANSETRON 4 MG/2 ML VIAL ONE (02:02)
[2020-10-03] MEDS ORDERED: MORPHINE 2 MG/ML SYR ONE ×2 (02:02→21:38)
[2020-10-03 04:55] LABS: Absolute Lymphocytes (CBC) 0.5 K/uL (0.7-4.9); Basophils % 0.2 % (0-1.3); Hematocrit 42.3 % (39.6-49.0); Lymphocytes % 9.2 % (15.3-44.8); MPV 8.3 fL (7.6-11.3); RBC Red Blood Cell Count 4.53 M/uL (4.33-5.43)
[2020-10-03 05:18] LABS: Blood Morphology Comment NOT SEEN (NOT SEEN); Platelet Estimate ADEQ
[2020-10-03 05:24] LABS: ALT/SGPT 62 U/L (12-78); AST/SGOT 35 U/L (15-37); Albumin 2.9 g/dL (3.4-5.0); Alkaline Phosphatase 94 U/L (45-117); BUN Blood Urea Nitrogen 14 mg/dL (7-18); Bicarbonate 26 mmol/L (21-32); Bilirubin Total 0.5 mg/dL (0.2-1.0); Glucose Level 145 mg/dL (74-106); HDL Cholesterol 22 mg/dL (40-60); LDL Cholesterol, Calculated 84 (<130); Magnesium 2.3 mg/dL (1.8-2.4); Potassium 4.2 mmol/L (3.5-5.1); Protein, Total 7.4 g/dL (6.4-8.2); Sodium Level 137 mmol/L (136-145); Thyroid Stimulating Hormone 0.389 uIU/mL (0.360-3.740)
[2020-10-03] MEDS: ALBUTEROL 2.5 MG/3 ML NEB SOL NEB SCH ×3 (08:00→20:00)
[2020-10-03] MEDS ORDERED: ZINC SULFATE 220 MG CAP ONE (08:52)
[2020-10-03] MEDS ORDERED: THIAMINE HCL 100 MG TABLET ONE (08:53)
[2020-10-03] MEDS ORDERED: VITAMIN D 1000 UNIT TAB ONE (08:53)
[2020-10-03] MEDS ORDERED: ASCORBIC ACID 500 MG TABLET ONE ×4 (08:53→20:41)
[2020-10-03] MEDS ORDERED: METHYLPREDNISOLONE 40 MG INJ ONE ×2 (08:53→20:41)
[2020-10-03] MEDS ORDERED: ENOXAPARIN 40 MG/0.4 ML SQ ONE (08:54)
[2020-10-03] MEDS ORDERED: FAMOTIDINE 20 MG TAB ONE ×2 (08:54→20:42)
[2020-10-03] MEDS: METHYLPREDNISOLONE 125 MG INJ IV SCH ×2 (09:00→21:19)
[2020-10-03] MEDS: THIAMINE HCL 100 MG TABLET PO SCH (09:00)
[2020-10-03] MEDS: FAMOTIDINE 20 MG TAB PO SCH ×2 (09:00→21:20)
[2020-10-03] MEDS: ASCORBIC ACID 500 MG TABLET PO SCH ×4 (09:00→21:19)
[2020-10-03] MEDS: ZINC SULFATE 220 MG CAP PO SCH (09:00)
[2020-10-03] MEDS: IVERMECTIN 3 MG TABLET PO SCH (09:00)
[2020-10-03] MEDS: ENOXAPARIN 40 MG/0.4 ML SQ SCH (09:00)
[2020-10-03] MEDS: VITAMIN D 1000 UNIT TAB PO SCH (09:00)
--- NOTE | 2020-10-03 15:17 | P.PN ---
Subjective Date of Service: 10/03/20 Chief Complaint: covid pneumonia Patient complaining of shortness of breath. Oxygen has been titrated up to 5 L by nasal cannula. Physical Examination - Vital Signs Temperature: 98.1 F Blood Pressure: 130/69 Pulse: 64 Respirations: 26 Pulse Ox (%): 96 - Physical Exam General: Alert, In no apparent distress, Oriented x3 HEENT: Mucous membr. moist/pink Neck: JVD not distended Respiratory: Other (Nonlabored breathing) Cardiovascular: No edema, Regular rate/rhythm, Normal S1 S2 Gastrointestinal: Soft and benign, Non-distended Musculoskeletal: No swelling Integumentary: No rashes Neurological: Normal strength at 5/5 x4 extr Assessment And Plan - Current Problems (Diagnosis) (1) Acute respiratory failure with hypoxia Current Visit: Yes Status: Acute (2) Pneumonia due to COVID-19 virus Current Visit: Yes Status: Acute - Plan Continue IV steroid. Bronchodilator PRN Titrate oxygen. Patient seen by pulmonary. Antiviral therapies per pulmonary Vitamin supplementation. Supportive measures. On Ivermectin.
[2020-10-03 16:20] LABS: Magnesium 2.5 mg/dL (1.8-2.4)
[2020-10-03] MEDS ORDERED: ALBUTEROL 2.5 MG/3 ML NEB SOL ONE (20:13)
[2020-10-03] MEDS ORDERED: POTASS/SODIUM PHOSPHATE 1 PKT POWD.PACK ONE ×3 (20:41→23:46)
[2020-10-03] MEDS: BENZONATATE 100 MG CAP PO PRN (21:17)
[2020-10-03] MEDS: POTASS/SODIUM PHOSPHATE 1 PKT POWD.PACK PO SCH ×3 (21:19→23:19)
[2020-10-03] MEDS ORDERED: BENZONATATE 100 MG CAP PO ONE (21:37)
[2020-10-04] MEDS: ALBUTEROL 2.5 MG/3 ML NEB SOL NEB SCH ×4 (02:37→19:45)
[2020-10-04] MEDS ORDERED: ALBUTEROL 2.5 MG/3 ML NEB SOL ONE ×3 (02:49→20:01)
[2020-10-04 05:23] LABS: Absolute Lymphocytes (CBC) 0.5 K/uL (0.7-4.9); Basophils % 0.1 % (0-1.3); Hematocrit 41.8 % (39.6-49.0); Lymphocytes % 3.4 % (15.3-44.8); MPV 8.9 fL (7.6-11.3); RBC Red Blood Cell Count 4.46 M/uL (4.33-5.43)
[2020-10-04 05:35] LABS: ALT/SGPT 51 U/L (12-78); AST/SGOT 21 U/L (15-37); Alkaline Phosphatase 85 U/L (45-117); BUN Blood Urea Nitrogen 16 mg/dL (7-18); Bicarbonate 27 mmol/L (21-32); Bilirubin Total 0.4 mg/dL (0.2-1.0); Ferritin 726.8 ng/mL (26-388); Glucose Level 171 mg/dL (74-106); Phosphorus 3.6 mg/dL (2.5-4.9); Potassium 3.6 mmol/L (3.5-5.1); Protein, Total 7.2 g/dL (6.4-8.2); Sodium Level 139 mmol/L (136-145)
[2020-10-04] MEDS: IPRATROPIUM BROM 0.5MG/2.5ML NEB PRN (07:55)
[2020-10-04] MEDS ORDERED: IPRATROPIUM BROM 0.5MG/2.5ML ONE (08:11)
[2020-10-04] MEDS: ASCORBIC ACID 500 MG TABLET PO SCH ×4 (08:18→21:38)
[2020-10-04] MEDS: VITAMIN D 1000 UNIT TAB PO SCH (08:18)
[2020-10-04] MEDS: THIAMINE HCL 100 MG TABLET PO SCH (08:18)
[2020-10-04] MEDS: ZINC SULFATE 220 MG CAP PO SCH (08:19)
[2020-10-04] MEDS: METHYLPREDNISOLONE 125 MG INJ IV SCH ×2 (08:19→21:37)
[2020-10-04] MEDS: ENOXAPARIN 40 MG/0.4 ML SQ SCH (08:19)
[2020-10-04] MEDS: FAMOTIDINE 20 MG TAB PO SCH ×2 (08:22→21:38)
[2020-10-04] MEDS ORDERED: ZINC SULFATE 220 MG CAP ONE (08:36)
[2020-10-04] MEDS ORDERED: THIAMINE HCL 100 MG TABLET ONE (08:36)
[2020-10-04] MEDS ORDERED: METHYLPREDNISOLONE 125 MG INJ ONE ×2 (08:36→21:45)
[2020-10-04] MEDS ORDERED: ASCORBIC ACID 500 MG TABLET ONE ×3 (08:37→21:45)
[2020-10-04] MEDS ORDERED: FAMOTIDINE 20 MG/2 ML VIAL IV ONE (08:37)
[2020-10-04] MEDS ORDERED: ENOXAPARIN 40 MG/0.4 ML SQ ONE (08:37)
[2020-10-04] MEDS ORDERED: VITAMIN D 1000 UNIT TAB ONE (08:38)
[2020-10-04] MEDS ORDERED: POTASSIUM CL SA 10 MEQ TAB PO ONE ×2 (08:44→09:00)
[2020-10-04] MEDS ORDERED: FAMOTIDINE 20 MG TAB ONE ×2 (08:44→21:45)
[2020-10-04] MEDS: MORPHINE 2 MG/ML SYR IV PRN ×2 (12:07→22:21)
[2020-10-04] MEDS ORDERED: MORPHINE 2 MG/ML SYR ONE ×2 (12:29→22:41)
--- NOTE | 2020-10-04 15:30 | P.PN ---
Subjective Date of Service: 10/04/20 Chief Complaint: covid pneumonia Patient complaining of shortness of breath. He is also requiring more oxygen. Now requiring up to 6 L by nasal cannula. He reports poor sleep last night and night sweats. Physical Examination - Vital Signs Temperature: 98.7 F Blood Pressure: 139/66 Pulse: 72 Respirations: 24 Pulse Ox (%): 91 - Physical Exam General: In no apparent distress HEENT: Other (Oxygen by nasal cannula) Neck: JVD not distended Respiratory: Other (Nonlabored breathing) Cardiovascular: Regular rate/rhythm, Normal S1 S2 Gastrointestinal: Soft and benign, Non-distended Musculoskeletal: No swelling Integumentary: No rashes Neurological: Normal strength at 5/5 x4 extr Assessment And Plan - Current Problems (Diagnosis) (1) Acute respiratory failure with hypoxia Current Visit: Yes Status: Acute (2) Pneumonia due to COVID-19 virus Current Visit: Yes Status: Acute - Plan Continue IV steroid. Bronchodilator PRN On Ivermectin Titrate oxygen. Pulmonary is following. Antiviral therapies per pulmonary Vitamin supplementation. Supportive measures. Vitamin supplementation, zinc supplementation.
[2020-10-05] MEDS: ALBUTEROL 2.5 MG/3 ML NEB SOL NEB SCH ×4 (01:35→20:00)
[2020-10-05] MEDS ORDERED: ALBUTEROL 2.5 MG/3 ML NEB SOL ONE ×4 (02:04→20:20)
[2020-10-05 05:33] LABS: BUN Blood Urea Nitrogen 14 mg/dL (7-18); Bicarbonate 27 mmol/L (21-32); C-Reactive Protein 5.01 mg/L (<3.00); Glucose Level 191 mg/dL (74-106); Potassium 3.7 mmol/L (3.5-5.1); Sodium Level 139 mmol/L (136-145)
[2020-10-05 05:49] LABS: Ferritin 675.6 ng/mL (26-388)
[2020-10-05] MEDS ORDERED: POTASSIUM CL SA 10 MEQ TAB PO ONE ×3 (09:00→09:33)
[2020-10-05] MEDS: IPRATROPIUM BROM 0.5MG/2.5ML NEB PRN ×2 (09:14→14:25)
[2020-10-05] MEDS: ASCORBIC ACID 500 MG TABLET PO SCH ×4 (09:29→21:37)
[2020-10-05] MEDS: ZINC SULFATE 220 MG CAP PO SCH (09:29)
[2020-10-05] MEDS: METHYLPREDNISOLONE 125 MG INJ IV SCH ×2 (09:29→21:37)
[2020-10-05] MEDS: ENOXAPARIN 40 MG/0.4 ML SQ SCH (09:29)
[2020-10-05] MEDS: FAMOTIDINE 20 MG TAB PO SCH ×2 (09:29→21:37)
[2020-10-05] MEDS: IVERMECTIN 3 MG TABLET PO SCH (09:30)
[2020-10-05] MEDS ORDERED: ZINC SULFATE 220 MG CAP ONE (09:32)
[2020-10-05] MEDS ORDERED: ENOXAPARIN 40 MG/0.4 ML SQ ONE (09:32)
[2020-10-05] MEDS ORDERED: METHYLPREDNISOLONE 125 MG INJ ONE ×2 (09:32→21:57)
[2020-10-05] MEDS ORDERED: FAMOTIDINE 20 MG TAB ONE ×2 (09:32→21:56)
[2020-10-05] MEDS ORDERED: ASCORBIC ACID 500 MG TABLET ONE ×4 (09:32→21:56)
[2020-10-05] MEDS: THIAMINE HCL 100 MG TABLET PO SCH (12:01)
[2020-10-05] MEDS: VITAMIN D 1000 UNIT TAB PO SCH (12:03)
[2020-10-05] MEDS ORDERED: VITAMIN D 1000 UNIT TAB ONE ×2 (12:15→12:25)
[2020-10-05] MEDS ORDERED: THIAMINE HCL 100 MG TABLET ONE (12:15)
[2020-10-05] MEDS ORDERED: IPRATROPIUM BROM 0.5MG/2.5ML ONE (14:42)
[2020-10-05] MEDS: ACETAMINOPHEN 500 MG TAB PO PRN (16:30)
[2020-10-05] MEDS: BENZONATATE 100 MG CAP PO PRN (16:30)
[2020-10-05] MEDS ORDERED: BENZONATATE 100 MG CAP PO ONE (16:52)
[2020-10-05] MEDS ORDERED: ACETAMINOPHEN 500 MG TAB ONE (16:52)
--- NOTE | 2020-10-05 21:51 | P.PN ---
Subjective Date of Service: 10/05/20 Chief Complaint: covid pneumonia Subjective: Worsening (More oxygen. SOB) Review of Systems General: Weakness Respiratory: Shortness of Breath Physical Examination - Vital Signs Temperature: 96.5 F Blood Pressure: 159/79 Pulse: 80 Respirations: 20 Pulse Ox (%): 92 Assessment & Plan - Problems (Diagnosis) (1) Pneumonia due to COVID-19 virus Current Visit: Yes Status: Acute Plan: REsp failure from COVID. oxygenation stable/ increase lovenox, S/p ivermectin/ poss DC home am?/ add asprin
[2020-10-05] MEDS: ASPIRIN EC 81 MG TAB PO SCH (21:57)
[2020-10-05] MEDS ORDERED: MORPHINE 2 MG/ML SYR ONE (21:58)
[2020-10-05] MEDS ORDERED: MELATONIN 5 MG TABLET PO ONE (22:12)
[2020-10-05] MEDS: MORPHINE 2 MG/ML SYR IV PRN (22:16)
[2020-10-05] MEDS ORDERED: ASPIRIN EC 81 MG TAB PO ONE (22:19)
[2020-10-06] MEDS: ALBUTEROL 2.5 MG/3 ML NEB SOL NEB SCH ×2 (01:40→08:35)
[2020-10-06] MEDS ORDERED: ALBUTEROL 2.5 MG/3 ML NEB SOL ONE ×2 (01:59→08:33)
[2020-10-06 05:50] LABS: Ferritin 755.5 ng/mL (26-388)
[2020-10-06 05:54] LABS: C-Reactive Protein < 2.90 mg/L (<3.00)
[2020-10-06 07:59] LABS: Absolute Lymphocytes (CBC) 0.4 K/uL (0.7-4.9); Basophils % 0.2 % (0-1.3); MPV 8.3 fL (7.6-11.3); RBC Red Blood Cell Count 4.19 M/uL (4.33-5.43)
[2020-10-06 08:21] LABS: BUN Blood Urea Nitrogen 13 mg/dL (7-18); Bicarbonate 28 mmol/L (21-32); Ferritin 756.3 ng/mL (26-388); Glucose Level 161 mg/dL (74-106); Magnesium 2.6 mg/dL (1.8-2.4); Phosphorus 3.4 mg/dL (2.5-4.9); Sodium Level 139 mmol/L (136-145)
[2020-10-06 08:27] LABS: C-Reactive Protein < 2.90 mg/L (<3.00)
[2020-10-06 08:54] LABS: Blood Morphology Comment NOT SEEN (NOT SEEN); Platelet Estimate ADEQ; White Blood Cell Scan OK (OK)
[2020-10-06] MEDS ORDERED: ENOXAPARIN 60 MG/0.6 ML SQ SCH (09:00)
[2020-10-06] MEDS: THIAMINE HCL 100 MG TABLET PO SCH (09:31)
[2020-10-06] MEDS: ACETAMINOPHEN 500 MG TAB PO PRN (09:31)
[2020-10-06] MEDS: ASPIRIN EC 81 MG TAB PO SCH (09:31)
[2020-10-06] MEDS: ASCORBIC ACID 500 MG TABLET PO SCH ×2 (09:32→12:36)
[2020-10-06] MEDS: ZINC SULFATE 220 MG CAP PO SCH (09:32)
[2020-10-06] MEDS: BENZONATATE 100 MG CAP PO PRN (09:32)
[2020-10-06] MEDS: FAMOTIDINE 20 MG TAB PO SCH (09:32)
[2020-10-06] MEDS: METHYLPREDNISOLONE 125 MG INJ IV SCH (09:33)
[2020-10-06] MEDS: VITAMIN D 1000 UNIT TAB PO SCH (09:33)
[2020-10-06] MEDS ORDERED: BENZONATATE 100 MG CAP PO ONE (09:46)
[2020-10-06] MEDS ORDERED: ZINC SULFATE 220 MG CAP ONE (09:46)
[2020-10-06] MEDS ORDERED: METHYLPREDNISOLONE 125 MG INJ ONE (09:46)
[2020-10-06] MEDS ORDERED: ASPIRIN EC 81 MG TAB PO ONE (09:47)
[2020-10-06] MEDS ORDERED: ACETAMINOPHEN 500 MG TAB ONE (09:47)
[2020-10-06] MEDS ORDERED: FAMOTIDINE 20 MG TAB ONE (09:47)
[2020-10-06] MEDS ORDERED: VITAMIN D 1000 UNIT TAB ONE (09:47)
[2020-10-06] MEDS ORDERED: THIAMINE HCL 100 MG TABLET ONE (09:47)
[2020-10-06] MEDS ORDERED: ASCORBIC ACID 500 MG TABLET ONE ×2 (09:47→12:20)
[2020-10-06] MEDS ORDERED: ENOXAPARIN 60 MG/0.6 ML SQ ONE (09:48)
--- NOTE | 2020-10-06 11:09 | P.PN ---
Subjective Date of Service: 10/06/20 (TV) Chief Complaint: covid pneumonia Subjective: Improving (Doing much better on [place] O2) Review of Systems General: Weakness Respiratory: Shortness of Breath Physical Examination - Vital Signs Temperature: 97.7 F Blood Pressure: 136/73 Pulse: 78 Respirations: 24 Pulse Ox (%): 93 - Physical Exam General: Alert, In no apparent distress, Oriented x3 Assessment & Plan - Problems (Diagnosis) (1) Pneumonia due to COVID-19 virus Current Visit: Yes Status: Acute Plan: Resp failure Pthas improved/onNC O2/ DC home F/u wht me 1-2 wks/ VS stable
[2020-10-06 11:43] VITALS: O2SAT 91
--- NOTE | 2020-10-06 12:35 | P.DS ---
Admission Date: 10/02/20 Discharge Date: 10/06/20 Disposition: ROUTINE DISCHARGE Discharge Condition: FAIR Reason for Admission: covid pneumonia Consultations: Pulmonary-Dr. Dotson - Problems (1) Acute respiratory failure with hypoxia Current Visit: Yes Status: Acute (2) Pneumonia due to COVID-19 virus Current Visit: Yes Status: Acute Brief History of Present Illness: 55-year-old gentleman presented to the emergency department with a complaint of progressive shortness of breath. Patient tested positive for COVID 19 4 days prior. His oxygen saturation in the ED was 87% on room air. Chest x-ray demonstrated bilateral pneumonia consistent with COVID. Patient placed on oxygen by nasal cannula and admitted to the medical floor for further management. Hospital Course: Patient started on treatment per COVID protocol with IV steroids, bronchodilators. Also placed on full-dose Lovenox for anticoagulation. Patient seen in consultation by pulmonary-Dr. Dotson who assisted with management. He was stable on oxygen by nasal cannula. Patient was given Ivermectin. Patient was stable respiratory viera on oxygen by nasal cannula. Today he has tolerated room air with saturation in the low 90s with short distance ambula tion. He does desaturate on room air sometimes. Patient is clinically stable for discharge. He is discharged with oral prednisone taper, Eliquis anticoagulation and vitamin supplementation. He will follow with Dr. Dotson as an outpatient. Vital Signs/Physical Exam: Temp Pulse Resp BP Pulse Ox 97.7 F 78 24 H 136/73 93 10/06/20 11:08 10/06/20 11:08 10/06/20 11:08 10/06/20 11:08 10/06/20 11:08 General: Alert, In no apparent distress, Oriented x3 Neck: JVD not distended Respiratory: Other (Nonlabored breathing) Cardiovascular: Regular rate/rhythm, Normal S1 S2 Gastrointestinal: Soft and benign, Non-distended Integumentary: No rashes Neurological: Normal strength at 5/5 x4 extr Laboratory Data at Discharge: WBC 12.90 K/uL (4.3-10.9) H 10/06/20 07:40 Hgb 13.5 g/dL (13.6-17.9) L 10/06/20 07:40 Hct 39.0 % (39.6-49.0) L 10/06/20 07:40 Plt Count 233 K/uL (152-406) 10/06/20 07:40 Sodium 139 mmol/L (136-145) 10/06/20 07:40 Potassium 4.0 mmol/L (3.5-5.1) 10/06/20 07:40 BUN 13 mg/dL (7-18) 10/06/20 07:40 Creatinine 0.75 mg/dL (0.55-1.3) 10/06/20 07:40 Glucose 161 mg/dL (74-106) H 10/06/20 07:40 Phosphorus 3.4 mg/dL (2.5-4.9) 10/06/20 07:40 Magnesium 2.6 mg/dL (1.8-2.4) H 10/06/20 07:40 Total Bilirubin 0.4 mg/dL (0.2-1.0) 10/04/20 04:35 AST 21 U/L (15-37) 10/04/20 04:35 ALT 51 U/L (12-78) 10/04/20 04:35 Alkaline Phosphatase 85 U/L (45-117) 10/04/20 04:35 Triglycerides 134 mg/dL (<150) 10/03/20 04:36 Cholesterol 133 mg/dL (<200) 10/03/20 04:36 HDL Cholesterol 22 mg/dL (40-60) L 10/03/20 04:36 Cholesterol/HDL Ratio 6.05 10/03/20 04:36 Home Medications: Apixaban [Eliquis] 2.5 mg PO BID #60 tablet 10/06/20 Ascorbic Acid [Vitamin C*] 500 mg PO QID #120 tablet 10/06/20 Benzonatate [Tessalon Perle*] 100 mg PO TID PRN #30 cap 10/06/20 Famotidine [Pepcid*] 20 mg PO BID #60 tab 10/06/20 Thiamine HCl [Vitamin B-1*] 200 mg PO DAILY #60 tablet 10/06/20 Zinc Sulfate [Zinc Sulfate*] 220 mg PO DAILY #30 cap 10/06/20 predniSONE [Prednisone] 20 mg PO BID #21 tablet 10/06/20 New Medications: Apixaban [Eliquis] 2.5 mg PO BID #60 tablet Famotidine [Pepcid*] 20 mg PO BID #60 tab predniSONE [Prednisone] 20 mg PO BID #21 tablet Benzonatate [Tessalon Perle*] 100 mg PO TID PRN #30 cap PRN Reason: Cough Thiamine HCl [Vitamin B-1*] 200 mg PO DAILY #60 tablet Ascorbic Acid [Vitamin C*] 500 mg PO QID #120 tablet Zinc Sulfate [Zinc Sulfate*] 220 mg PO DAILY #30 cap Diet: AHA Activity: Ad clement Followup: NONE,NONE [Primary Care Provider] - Time spent managing pt's care (in minutes): 36
[2020-10-06 13:33] VITALS: BP 159/79; TEMP 98.1
== END 2020-10-06 13:54 | disposition home or self-care (01) | DRG 177 ==
LOC: ER 09:40 → ERHOLD 18:23
PROVIDERS: ADMIT Internal Medicine; ATTEND Internal Medicine
DX: U07.1 COVID-19 (principal); J12.82 Pneumonia due to coronavirus disease 2019; J96.01 Acute respiratory failure with hypoxia; I10 Essential (primary) hypertension; F41.9 Anxiety disorder, unspecified; E86.0 Dehydration; E66.9 Obesity, unspecified; Z68.39 Body mass index [BMI] 39.0-39.9, adult; Z88.0 Allergy status to penicillin; Z79.01 Long term (current) use of anticoagulants; Z87.891 Personal history of nicotine dependence; Z79.52 Long term (current) use of systemic steroids; Z79.899 Other long term (current) drug therapy
CPT/HCPCS: 36415; 71046; 71275; 80048; 80053; 80061; 82728; 83735; 84100; 84145; 84439; 84443; 84484; 85025; 86140; 94640; 94760; 96361; 96374; 99285; J1650; J2270; J2405; J2920; J2930; J7030; Q9967; U0003

== ENCOUNTER 2022-01-10 15:51 | Emergency (ER) | payer SELFPAY ==
[2022-01-10] MEDS ORDERED: MORPHINE 4 MG/ML SYR ONE (16:17)
[2022-01-10] MEDS ORDERED: NA CHLORIDE 0.9% 1,000 ML ONE (16:17)
[2022-01-10] MEDS ORDERED: ONDANSETRON 4 MG/2 ML VIAL ONE (16:17)
[2022-01-10 16:25] LABS: Absolute Lymphocytes (CBC) 1.2 K/uL (0.7-4.9); MCV 93.8 fL (80-100); MPV 8.7 fL (7.6-11.3); RBC Red Blood Cell Count 4.69 M/uL (4.33-5.43)
[2022-01-10 16:40] LABS: Albumin 3.9 g/dL (3.4-5.0); Bilirubin Total 0.4 mg/dL (0.2-1.0); Protein, Total 7.6 g/dL (6.4-8.2)
[2022-01-10] MEDS ORDERED: FENTANYL CITR 100 MCG/2 ML ONE (17:37)
--- NOTE | 2022-01-10 18:20 | RAD REPORT ---
EXAM DESCRIPTION: US - Scrotum Testicles - 01/10/2022 6:05 pm CLINICAL HISTORY: Testicular pain COMPARISON: None FINDINGS: Right testicle measures 4.3 x 3.1 x 2.7 centimeters. Echotexture is homogeneous. Normal bl ood flow Left testicle measures 4.5 x 2.4 x 3.4 centimeters. Echotexture is homogeneous. Normal blood flow The epididymides are normal in size and echotexture. Normal blood flow is seen. Right inguinal hernia contains fat. Mild left varicocele IMPRESSION: Right inguinal hernia contains fat Mild left varicocele
[2022-01-10 18:55] LABS: Urine Blood Negative (Negative); Urine Glucose Negative (Negative); Urine Protein 1+ (Negative); Urine pH 7.5 (5.0-7.0)
--- NOTE | 2022-01-10 18:55 | RAD REPORT ---
EXAM DESCRIPTION: CT - Stone Protocol - 01/10/2022 6:37 pm CLINICAL HISTORY: Abdominal pain. COMPARISON: 2018 TECHNIQUE: Computed axial tomography of the abdomen pelvis was obtained without oral or IV contrast. Lack of IV and oral contrast limits evaluation of solid organs, appendix, bowel, and vessels. Quach l reformatted images were obtained and reviewed. All CT scans are performed using dose optimization technique as appropriate and may include automated exposure control or mA/KV adjustment according to patient size. FINDINGS: A renal calculus is not seen. An ureteral calculus is not noted. A bladder calculus is not present. The liver, spleen, pancreas and adrenals appear grossly normal There is no evidence of diverticulitis. The appendix appears normal Small inguinal hernias contain fat. Small umbilical hernia IMPRESSION: Negative for a genitourinary calculus
[2022-01-10 19:09] LABS: Urine Mucus 2+ /HPF (None Seen)
--- NOTE | 2022-01-10 19:21 | EDPHYS ---
Physician Documentation [facility] Name: Livan Pantoja Age: 56 yrs Sex: Male : 1965 Arrival Date: 01/10/2022 Time: 15:54 Bed 19 Private MD: ED Physician Tony Smith HPI: 01/10 17:00 This 56 yrs old Male presents to ER via Wheelchair with complaints of Groin Pain, Back kb Pain. 17:00 The patient presents with scrotal pain, of the left side. Onset: The symptoms/episode kb began/occurred at 12:15. Modifying factors: The symptoms are alleviated by nothing, the symptoms are aggravated by nothing. Associated signs and symptoms: The patient has no apparent associated signs or symptoms. Severity of symptoms: At their worst the symptoms were moderate, in the emergency department the symptoms are unchanged. The patient has not experienced similar symptoms in the past. The patient has not recently seen a physician. 18:17 Pt reports left testicular pain that started at 1215 today. States he waited to see if kb it would go away, but now it is radiating to llq . Historical: - Allergies: 16:01 PENICILLINS; vg1 - PMHx: 16:01 Anxiety; Hypertension; Renal Failure; vg1 - Immunization history:: Client reports having NOT received the Covid vaccine. - Social history:: Smoking status: Patient reports use of chewing tobacco. ROS: 16:59 Constitutional: Negative for fever, chills, and weight loss. kb 16:59 : Positive for testicular pain of the left testicle. 16:59 All other systems are negative. Exam: 17:00 Constitutional: This is a well developed, well nourished patient who is awake, alert, kb and in no acute distress. Head/Face: Normocephalic, atraumatic. ENT: Moist Mucous membranes Cardiovascular: Regular rate and rhythm with a normal S1 and S2. No gallops, murmurs, or rubs. No pulse deficits. Respiratory: Respirations even and unlabored. No increased work of breathing. Talking in full sentences Abdomen/GI: Soft, non-tender. No distention Male : Normal genitalia with no discharge or lesions. Skin: Warm, dry with normal turgor. Normal color. MS/ Extremity: Pulses equal, no cyanosis. Neurovascular intact. Full, normal range of motion. Neuro: Awake and alert, GCS 15, oriented to person, place, time, and situation. Moves all extremities. Normal gait. Psych: Awake, alert, with orientation to person, place and time. Behavior, mood, and affect are within normal limits. Vital Signs: 15:56 BP 176 / 76; Pulse 77; Resp 20; Temp 98.1; Pulse Ox 100% ; Weight 140.61 kg; Height 5 vg1 ft. 11 in. (180.34 cm); Pain 10/10; 18:03 BP 156 / 86; Pulse 64; Pulse Ox 98% ; Pain 8/10; mb8 19:39 BP 151 / 75; Pulse 62; Resp 16; Pulse Ox 94% on R/A; tp1 15:56 Body Mass Index 43.24 (140.61 kg, 180.34 cm) vg1 MDM: 15:59 Patient medically screened. kb 16:59 Data reviewed: vital signs, nurses notes. Data interpreted: Pulse oximetry: on room air kb is 100 %. Interpretation: normal. 19:19 Counseling: I had a detailed discussion with the patient and/or guardian regarding: the kb historical points, exam findings, and any diagnostic results supporting the discharge/admit diagnosis, lab results, radiology results, the need for outpatient follow up, a family practitioner, to return to the emergency department if symptoms worsen or persist or if there are any questions or concerns that arise at home. 01/10 16:04 Order name: CBC with Diff; Complete Time: 16:31 kb 01/10 16:04 Order name: CMP; Complete Time: 16:56 kb 01/10 16:03 Order name: US Scrotum Testicles; Complete Time: 18:20 kb 01/10 16:04 Order name: Lipase; Complete Time: 16:56 kb 01/10 16:04 Order name: Urine Microscopic Only; Complete Time: 19:13 kb 01/10 18:55 Order name: Urine Dipstick-Ancillary; Complete Time: 18:56 EDMS 01/10 16:04 Order name: IV Saline Lock; Complete Time: 16:25 kb 01/10 16:04 Order name: Labs collected and sent; Complete Time: 16:25 kb 01/10 16:04 Order name: Urine Dipstick-Ancillary (obtain specimen); Complete Time: 18:56 kb 01/10 18:21 Order name: CT Stone Protocol; Complete Time: 18:56 kb Administered Medications: 16:19 Drug: morphine 4 mg Route: IVP; Infused Over: 4 mins; Site: right antecubital; mb8 17:35 Follow up: Response: No adverse reaction; Pain is unchanged, physician notified; RASS: mb8 Restless (+1) 16:23 Drug: Zofran (Ondansetron) 4 mg Route: IVP; Site: right antecubital; mb8 17:35 Follow up: Response: No adverse reaction mb8 16:25 Drug: NS 0.9% 1000 ml Route: IV; Rate: 1 bolus; Site: right antecubital; mb8 19:41 Follow up: IV Status: Completed infusion; IV Intake: 1000ml tp1 17:42 Drug: fentaNYL (PF) 50 mcg Route: IVP; Site: right antecubital; mb8 18:03 Follow up: Response: No adverse reaction; Pain is decreased; RASS: Alert and Calm (0) mb8 Disposition Summary: 01/10/22 19:20 Discharge Ordered Location: Home kb Condition: Stable kb Diagnosis - Left testicular pain kb Followup: kb - With: Emergency Department - When: As needed - Reason: Worsening of condition Followup: kb - With: Private Physician - When: 2 - 3 days - Reason: Recheck today's complaints, Continuance of care, Re-evaluation by your physician Discharge Instructions: - Discharge Summary Sheet kb - Flank Pain, Adult, [id number] kb - Testicular Self-Exam, [id number] kb Forms: - Medication Reconciliation Form kb - Thank You Letter kb - Antibiotic Education kb - Prescription Opioid Use kb Prescriptions: - Diclofenac Sodium 75 mg Oral tablet,delayed release (DR/EC) - take 1 tablet by ORAL route 2 times per day As needed; 30 tablet; Refills: 0, kb Product Selection Permitted Addendum: 01/13/2022 07:01 Co-signature as Attending Physician, Tony Smith MD. r n Signatures: Dispatcher [employer] Hollie Calvillo, KARISHMA-C KARISHMA-Tony Vargas MD MD rn Garcia, Victoria RN RN vg1 Livan Vaughn RN RN mb8 Dayanara Guerrero RN tp1 Corrections: (The following items were deleted from the chart) 01/10 19:30 17:00 Constitutional: This is a well developed, well nourished patient who is awake, kb alert, and in no acute distress. Head/Face: Normocephalic, atraumatic. ENT: Moist Mucous membranes Cardiovascular: Regular rate and rhythm with a normal S1 and S2. No gallops, murmurs, or rubs. No pulse deficits. Respiratory: Respirations even and unlabored. No increased work of breathing. Talking in full sentences Skin: Warm, dry with normal turgor. Normal color. MS/ Extremity: Pulses equal, no cyanosis. Neurovascular intact. Full, normal range of motion. Neuro: Awake and alert, GCS 15, oriented to person, place, time, and situation. Moves all extremities. Normal gait. Psych: Awake, alert, with orientation to person, place and time. Behavior, mood, and affect are within normal limits. kb
--- NOTE | 2022-01-10 19:21 | ER ---
Nurse's Notes [facility] Name: Livan Pantoja Age: 56 yrs Sex: Male : 1965 Arrival Date: 01/10/2022 Time: 15:54 Bed 19 Private MD: Diagnosis: Left testicular pain Presentation: 01/10 15:56 Chief complaint: Patient states: Left testicle pain and radiates up to left lower back; vg1 pain began around lunch time. States nausea, denies urine frequency, burning upon urination or blood in urine. Coronavirus screen: Vaccine status: Patient reports being unvaccinated. Client denies travel out of the [place] in the last 14 days. Ebola Screen: Patient negative for fever greater than or equal to 101.5 degrees Fahrenheit, and additional compatible Ebola Virus Disease symptoms. Initial Sepsis Screen: Does the patient meet any 2 criteria? No. Patient's initial sepsis screen is negative. Does the patient have a suspected source of infection? No. Patient's initial sepsis screen is negative. Risk Assessment: Do you want to hurt yourself or someone else? Patient reports no desire to harm self or others. Onset of symptoms was January 10, 2022. 15:56 Method Of Arrival: Wheelchair vg1 15:56 Acuity: MARYSOL 3 vg1 Triage Assessment: 16:01 General: Appears uncomfortable, Behavior is cooperative. Pain: Complains of pain in vg1 back and pelvis Pain currently is 10 out of 10 on a pain scale. Pain began 3 hours ago. : Reports pain testicle, Denies burning with urination, urinary frequency. Musculoskeletal: Circulation, motion, and sensation intact. Historical: - Allergies: 16:01 PENICILLINS; vg1 - PMHx: 16:01 Anxiety; Hypertension; Renal Failure; vg1 - Immunization history:: Client reports having NOT received the Covid vaccine. - Social history:: Smoking status: Patient reports use of chewing tobacco. Screenin:26 Abuse screen: Denies threats or abuse. Denies injuries from another. Nutritional mb8 screening: No deficits noted. Tuberculosis screening: No symptoms or risk factors identified. Fall Risk None identified. Assessment: 16:25 Pain: Complains of pain in groin Pain does not radiate. Pain currently is 10 out of 10 mb8 on a pain scale. Quality of pain is described as crampy, Pain began 1200 01/10/22 Is continuous. Neuro: No deficits noted. 16:26 : Denies burning with urination, inability to void, incontinence, urinary frequency. mb8 18:04 Reassessment: Patient is alert, oriented x 3, equal unlabored respirations, skin mb8 warm/dry/pink. Patient feeling slightly better after Fentanyl. Reports still has pain but the edge is off. 19:27 General: Appears in no apparent distress. uncomfortable, Behavior is calm, cooperative. tp1 Pain: Complains of pain in groin Pain does not radiate. Pain currently is 7 out of 10 on a pain scale. Quality of pain is described as sharp. Neuro: Level of Consciousness is awake, alert, obeys commands, Oriented to person, place, time, situation. Cardiovascular: Patient's skin is warm and dry. Respiratory: Airway is patent Respiratory effort is even, unlabored. Derm: Skin is pink, warm \T\ dry. Musculoskeletal: Circulation, motion, and sensation intact. Vital Signs: 15:56 BP 176 / 76; Pulse 77; Resp 20; Temp 98.1; Pulse Ox 100% ; Weight 140.61 kg; Height 5 vg1 ft. 11 in. (180.34 cm); Pain 10/10; 18:03 BP 156 / 86; Pulse 64; Pulse Ox 98% ; Pain 8/10; mb8 19:39 BP 151 / 75; Pulse 62; Resp 16; Pulse Ox 94% on R/A; tp1 15:56 Body Mass Index 43.24 (140.61 kg, 180.34 cm) vg1 ED Course: 15:54 Patient arrived in ED. rg4 15:56 [facility]C [facility]. kb 15:56 Tony Smith MD is Attending Physician. kb 16:01 Triage completed. vg1 16:01 Arm band placed on. vg1 16:08 Livan Vaughn, IVÁN is Primary Nurse. mb8 16:18 Inserted saline lock: 18 gauge in right antecubital area, using aseptic technique. mb8 Blood collected. 16:26 Patient has correct armband on for positive identification. Placed in gown. Bed in low mb8 position. Call light in reach. Side rails up X2. Client placed on continuous cardiac and pulse oximetry monitoring. NIBP monitoring applied. 16:27 No provider procedures requiring assistance completed. mb8 18:07 US Scrotum Testicles In Process Unspecified. EDMS 18:39 CT Stone Protocol In Process Unspecified. EDMS 19:28 Primary Nurse role handed off by Livan Vaughn, RN jl7 19:40 IV discontinued, intact, bleeding controlled, No redness/swelling at site. Pressure tp1 dressing applied. Administered Medications: 16:19 Drug: morphine 4 mg Route: IVP; Infused Over: 4 mins; Site: right antecubital; mb8 17:35 Follow up: Response: No adverse reaction; Pain is unchanged, physician notified; RASS: mb8 Restless (+1) 16:23 Drug: Zofran (Ondansetron) 4 mg Route: IVP; Site: right antecubital; mb8 17:35 Follow up: Response: No adverse reaction mb8 16:25 Drug: NS 0.9% 1000 ml Route: IV; Rate: 1 bolus; Site: right antecubital; mb8 19:41 Follow up: IV Status: Completed infusion; IV Intake: 1000ml tp1 17:42 Drug: fentaNYL (PF) 50 mcg Route: IVP; Site: right antecubital; mb8 18:03 Follow up: Response: No adverse reaction; Pain is decreased; RASS: Alert and Calm (0) mb8 Medication: 16:26 VIS not applicable for this client. mb8 Intake: 19:41 IV: 1000ml; Total: 1000ml. tp1 Outcome: 19:20 Discharge ordered by . kb 19:40 Discharged to home ambulatory. tp1 19:40 Condition: good 19:40 Discharge instructions given to patient, Instructed on discharge instructions, follow up and referral plans. medication usage, Demonstrated understanding of instructions, follow-up care, medications, Prescriptions given X 1. 19:41 Patient left the ED. tp1 Signatures: Dispatcher [employer] EDMS Hollie Pantoja, NUTRITION HELPER-C NUTRITION HELPER-Johnna [place] rg4 Raza Gay RN RN jl7 Frannie Lewis RN RN vg1 Dayanara Guerrero RN RN tp1 Livan Vaughn, RN RN mb8
[2022-01-10 19:55] VITALS: TEMP 98.1
[2022-01-10 19:58] VITALS: BP 151/75; O2SAT 94
== END 2022-01-10 19:41 | disposition home or self-care (01) ==
LOC: ER 15:51
DX: N50.812 Left testicular pain (principal); Z88.0 Allergy status to penicillin
CPT/HCPCS: 36415; 74176; 76377; 76870; 80053; 81003; 81015; 83690; 85025; 96361; 96374; 96375; 99284; J2405; J3010; J7030

== ENCOUNTER 2024-10-14 21:08 | Emergency (ER) | payer SELFPAY ==
--- NOTE | 2024-10-14 21:34 | EDPHYS ---
Physician Documentation [facility] Name: Livan Pantoja Age: 59 yrs Sex: Male : 1965 Arrival Date: 10/14/2024 Time: 21:08 Bed IW1 Private MD: ED Physician Daniel Bennett HPI: 10/14 21:49 This 59 yrs old Male presents to ER via Ambulatory with complaints of ear problem, Rash kb - on head. 21:49 Patient is a 59-year-old male who presents for scaly patches to scalp that started 1 kb week ago. Reports he has been losing his hair as well. Recently developed swelling, drainage and pain to bilateral ears. Denies fever.. Historical: - Allergies: 21:32 PENICILLINS; kd3 - PMHx: 21:32 Anxiety; Hypertension; RENAL FAILURE; kd3 - Immunization history:: Adult Immunizations up to date. - Infectious Disease History:: Denies. - Social history:: Smoking status: Patient reports use of chewing tobacco. ROS: 21:45 Constitutional: As per HPI kb Exam: 21:45 Constitutional: This is a well developed, well nourished patient who is awake, alert, kb and in no acute distress. Head/Face: Normocephalic, atraumatic. Cardiovascular: Regular rate Respiratory: Respirations even and unlabored. No increased work of breathing. Talking in full sentences MS/ Extremity: Pulses equal, no cyanosis. Neurovascular intact. Full, normal range of motion. Neuro: Awake and alert, GCS 15, oriented to person, place, time, and situation. 21:45 ENT: External ear(s): are unremarkable, Ear canal(s): purulent discharge, that is minimal, bilaterally, swelling, that is moderate, bilaterally, 21:45 Skin: scaly, dried patches to scalp. Vital Signs: 21:31 BP 148 / 77; Pulse 88; Resp 18; Temp 98.2(O); Pulse Ox 98% on R/A; Weight 117.93 kg; kd3 Height 5 ft. 11 in. ; 21:31 Body Mass Index 36.26 (117.93 kg, 180.34 cm) kd3 MDM: 21:16 Medical Screening Exam initiated kb 21:48 Differential diagnosis: Psoriasis, seborrheic dermatitis, otitis media, otitis externa, kb tinea capitis. Data reviewed: vital signs, nurses notes. 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 Administered Medications: No medications were administered Disposition: 10/15 04:17 Co-signature as Attending Physician, Daniel Bennett MD I agree with the assessment sp4 and plan of care. I reviewed the patient's care provided by the Advanced Practice Provider and agree with the diagnosis and treatment plan. Disposition Summary: 10/14/24 21:33 Discharge Ordered Notes: Location: Home kb Condition: Stable kb Diagnosis - Unspecified otitis externa, left ear kb - Unspecified otitis externa, right ear kb - Seborrheic dermatitis, unspecified kb Followup: kb - With: Emergency Department - When: As needed - Reason: Worsening of condition Followup: kb - With: Private Physician - When: 2 - 3 days - Reason: Recheck today's complaints, Continuance of care, Re-evaluation by your physician Discharge Instructions: - Discharge Summary Sheet kb - Seborrheic Dermatitis, Adult kb - Otitis Externa, [id number] kb - Ear Drops, Adult, [id number] kb Forms: - Medication Reconciliation Form kb - Antibiotic Education kb - Prescription Opioid Use kb - Patient Portal Instructions kb - Leadership Thank You Letter kb Prescriptions: - fluocinolone and shower cap 0.01 % oil - administer 1 application TOPICAL route 2 times per day for 14 days; 1 kb Unspecified; Refills: 0, Product Selection Permitted - Ciprodex 0.3-0.1 % Otic drops, suspension - instill 4 drops OTIC route every 12 hours for 7 days , for ears ONLY; 1 kb Unspecified; Refills: 0, Product Selection Permitted Signatures: Hollie Pantoja FNP-C FNP-Ckb Doucette, Kyli, RN RN kd3 Daniel Bennett MD MD sp4
--- NOTE | 2024-10-14 21:34 | ER ---
Nurse's Notes [facility] Name: Livan Pantoja Age: 59 yrs Sex: Male : 1965 Arrival Date: 10/14/2024 Time: 21:08 Bed IW1 Private MD: Diagnosis: Unspecified otitis externa, left ear;Unspecified otitis externa, right ear;Seborrheic dermatitis, unspecified Presentation: 10/14 21:32 Coronavirus screen: Vaccine status: Patient reports being unvaccinated. Ebola Screen: kd3 No symptoms or risks identified at this time. Initial Sepsis Screen: Does the patient meet any 2 criteria? No. Patient's initial sepsis screen is negative. Does the patient have a suspected source of infection? No. Patient's initial sepsis screen is negative. Risk Assessment: Do you want to hurt yourself or someone else? Patient reports no desire to harm self or others. Onset of symptoms was October 14, 2024. 21:32 Method Of Arrival: Ambulatory kd3 21:32 Acuity: MARYSOL 4 kd3 21:33 Chief complaint: Patient states: I have had this scaly, red, flaky, itchy rash on my kd3 scalp for a week. then my hair started falling out. I wear a bandanna for work all the time. My ear is also starting to hurt. Triage Assessment: 21:32 General: Appears in no apparent distress. Behavior is calm, cooperative. Pain: Denies kd3 pain. Derm: Rash noted that is macular, itchy, red, on left frontal area and right frontal area. Historical: - Allergies: 21:32 PENICILLINS; kd3 - PMHx: 21:32 Anxiety; Hypertension; RENAL FAILURE; kd3 - Immunization history:: Adult Immunizations up to date. - Infectious Disease History:: Denies. - Social history:: Smoking status: Patient reports use of chewing tobacco. Screenin:35 [facility] ED Fall Risk Assessment (Adult) History of falling in the last 3 months, kd3 including since admission No falls in past 3 months (0 pts) Confusion or Disorientation No (0 pts) Intoxicated or Sedated No (0 pts) Impaired Gait No (0 pts) Mobility Assist Device Used No (0 pt) Altered Elimination No (0 pt) Score/Fall Risk Level 0 - 2 = Low Risk Oriented to surroundings. Abuse screen: Denies threats or abuse. Denies injuries from another. Nutritional screening: No deficits noted. Tuberculosis screening: No symptoms or risk factors identified. Assessment: 21:41 General: Appears in no apparent distress. Behavior is calm, cooperative. Neuro: Level kd3 of Consciousness is awake, alert, obeys commands, Oriented to person, place, time, situation. Respiratory: Airway is patent Trachea midline Respiratory effort is even, unlabored, Respiratory pattern is regular, symmetrical. Vital Signs: 21:31 BP 148 / 77; Pulse 88; Resp 18; Temp 98.2(O); Pulse Ox 98% on R/A; Weight 117.93 kg; kd3 Height 5 ft. 11 in. ; 21:31 Body Mass Index 36.26 (117.93 kg, 180.34 cm) kd3 ED Course: 21:13 Patient arrived in ED. al6 21:16 Hollie Pantoja FNP-C is [facility]. kb 21:16 Daniel Bennett MD is Attending Physician. kb 21:31 Susie Martínez, IVÁN is Primary Nurse. kd3 21:32 Triage completed. kd3 21:33 Arm band placed on right wrist. kd3 21:35 No provider procedures requiring assistance completed. Patient did not have IV access kd3 during this emergency room visit. 21:36 Patient has correct armband on for positive identification. Provided Education on: kd3 medicated shampoo . Administered Medications: No medications were administered Medication: 21:37 VIS not applicable for this client. kd3 Outcome: 21:33 Discharge ordered by . kb 21:36 Discharged to home ambulatory, kd3 21:36 Condition: stable 21:36 Discharge instructions given to patient, Instructed on discharge instructions, Demonstrated understanding of instructions, follow-up care, medications, Prescriptions given X 2, 21:42 Patient left the ED. kd3 Signatures: Hollie Pantoja FNP-C FNP-Ckb Doucette, Kyli, RN RN kd3 She Richey al6
[2024-10-14 21:54] VITALS: BP 148/77; TEMP 98.2; O2SAT 98
== END 2024-10-14 21:42 | disposition home or self-care (01) ==
LOC: ER 21:08
DX: H60.93 Unspecified otitis externa, bilateral (principal); L21.9 Seborrheic dermatitis, unspecified
CPT/HCPCS: 99283

== ENCOUNTER 2024-11-03 14:04 | Emergency (ER) | payer SELFPAY ==
--- OUTSIDE RECORDS SUMMARY | 2024-11-03 14:08 | XMS REPORT | Continuity of Care Document ---
Author Name Unknown Address [address] [facility] [address] [place] [address] Organization [facility] [place] Address [address] [facility] 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 Role Phone RAISSA HENDRICKSON Primary Care Physician STONE Adhikari Attending Clinician UnavailRAISSA Garcia Attending Clinician UnavailRAISSA Garcia Attending Clinician Unavailab tovar Doctor Unassigned, Daphne Attending Clinician U Mary Whittington LMSW Attending Clinician [phone] DANIS BOUCHER Attending Clinician Unavailable Danis Boucher MD Attending Clinician [phone] AMISHA RODRIGUEZ Attending Clinician UnavailBIPIN Mcgill Attending Clinician Bipin Bain MD Attending Clinician [phone] BIPIN BURROWS Admitting Clinician Bruna forman Problems Condition Name Condition Details Condition Category Status Onset Date Resolution Date Last Treatment Date Treating Clinician Comments Source Seborrheic dermatitis Seborrheic dermatitis Disease Active 10-23 00:00: 00 [facility] Maculopapu lar rash Maculopapu lar rash Disease Active 10-23 00:00: 00 [facility] Cellulitis of left external ear Cellulitis of left external ear Disease Active 10-23 00:00: 00 [facility] BMI 40.0-44.9, adult BMI 40.0-44.9, adult Disease Active 2021-03 00:00: 00 [facility] Epididymoo rchitis Epididymoo rchitis Disease Active 2021-03 00:00: 00 [facility] Left testicular pain Left testicular pain Disease Active 2021-03 00:00: 00 [facility] No known active problems No known active problems Disease [facility] Allergies, Adverse Reactions, Alerts Allergy Name Allergy Type Status Severity Reaction(s) Onset Date Inactive Date Treating Clinician Comments Source Penicill ins Propensi ty to adverse reaction s Active Other - See comments 2021-03 00:00: 00 [facility] Penicill ins Propensi ty to adverse reaction s Active Other - See comments 2021-03 00:00: 00 [facility] PENICILL INS Drug Class Active Other-Cmnt 2021-03 00:00: 00 [facility] NO KNOWN ALLERGIE S Drug Class Active [facility] Social History Social Habit Start Date Stop Date Quantity Comments Source [facility] of tobacco use Chews Tobacco [facility] Alcoholic beverage intake 2024-10-23 00:00:00 2024-10-23 00:00:00 Ex-drinker (finding) [facility] History of Social function 2022-02-14 00:00:00 2022-02-14 00:00:00 [facility] Alcohol intake 2022-02-14 00:00:00 2022-02-14 00:00:00 Ex-drinker (finding) [facility] Exposure to SARS-CoV-2 (event) 2022-01-17 00:00:00 2022-01-27 12:42:00 Not sure [facility] Cigarette pack-years 2022-01-17 00:00:00 2022-01-17 00:00:00 [facility] Cigarettes smoked current (pack per day) - Reported 2022-01-17 00:00:00 2022-01-17 00:00:00 [facility] Tobacco use and exposure 2022-01-17 00:00:00 2022-01-17 00:00:00 User of smokeless tobacco [facility] Tobacco Comment 2022-01-17 00:00:00 2022-01-17 00:00:00 20 years [facility] Alcohol Comment 2022-01-17 00:00:00 2022-01-17 00:00:00 quit last year [facility] Sex assigned at 1965 00:00:1965 00:00:00 [facility] Smoking Status Start Date Stop Date Source Tobacco smoking consumption unknown [facility] Ex-smoker 2022-01-17 00:00:00 2022-01-17 00:00:00 [facility] Medications Ordered Medication Name Filled Medication Name Start Date Stop Date Current Medication? Ordering Clinician Indication Dosage Frequency Signature (SIG) Comments Components Source ketoconazol e 2 % shampoo 10-23 00:00: 00 Yes [id number] Apply to areas(s) once daily as needed for Itching. [facility] sulfamethox azole-trime thoprim 800-160 mg per tablet 10-23 00:00: 00 11-03 04:59 :00 Yes [id number] 1{tbl} Take 1 tablet by mouth in the morning and 1 tablet in the evening. Do all this for 10 days. [facility] predniSONE 20 mg tablet 10-23 00:00: 00 10-29 04:59 :00 Yes [id number] 40mg Take 2 tablets by mouth in the morning for 5 days. [facility] gabapentin 300 mg capsule 2021-03 00:00: 00 02-25 05:59 :00 No [id number] 300mg Take 1 capsule by mouth in the morning and 1 capsule at noon and 1 capsule in the evening. Do all this for 28 days. [facility] cefTRIAXone (ROCEPHIN) injection 1,000 mg 2021-03 17:45: 00 01-17 17:16 :00 No [id number] 1000mg [facility] traMADoL 50 mg tablet 2021-03 00:00: 00 Yes [id number] 50mg Take 1 tablet by mouth every 6 (six) hours as needed for Pain (scale 4-6). Indication s: acute pain, acute pain [facility] traMADoL (ULTRAM) tablet 50 mg 2021-03 22:45: 00 01-12 21:54 :00 No 50mg 50 mg, Oral, ONCE, 1 dose, On 01/12/22 at 1645, Routine [facility] azithromyci n (ZITHROMAX) tablet 1,000 mg 2021-03 21:15: 00 01-12 21:28 :00 No 1000mg 1,000 mg, Oral, ONCE, 1 dose, On 01/12/22 at 1515, CUAUHTEMOC
Re ason for Anti-Infec tive: Documented Infection< br>Documen tawanna Infection Site: Other
O ther site: gu
Dura tion of Therapy: 7 days [facility] cefTRIAXone (ROCEPHIN) 1,000 mg in NaCl 0.9% (NS) 50 mL MINI-BAG 2021-03 21:15: 00 01-12 21:49 :00 No 1000mg 1,000 mg, IV Piggyback, ONCE, 1 dose, On 01/12/22 at 1515, Administer over 30 Minutes, 50 mL
Reas on for Anti-Infec tive: Empiric Therapy for Suspected Infection< br>Empiric Therapy Site: Other
O ther site: gu
Dura tion of therapy: 72 hours [facility] levoFLOXaci n in D5W (LEVAQUIN) 750 mg/150 mL Piggyback 750 mg 2021-03 21:15: 00 01-12 23:33 :00 No 750mg 750 mg, IV Piggyback, ONCE, 1 dose, On 01/12/22 at 1515, Administer over 90 Minutes, 150 mL
Reas on for Anti-Infec tive: Documented Infection< br>Documen tawanna Infection Site: Other
O ther site:
Dura tion of Therapy: 7 days [facility] morpHINE (4 mg/mL) injection 4 mg 2021-03 20:45: 00 01-12 20:32 :00 No 4mg 4 mg, Slow IV Push, ONCE, 1 dose, On 01/12/22 at 1445, STAT [facility] ketorolac (TORADOL) injection 30 mg 2021-03 20:30: 00 01-12 20:19 :00 No 30mg 30 mg, Slow IV Push, ONCE, 1 dose, On 01/12/22 at 1430, Routine [facility] NaCl 0.9% (NS) bolus infusion 1,000 mL 2021-03 19:45: 00 01-12 23:34 :00 No 1000mL at 999 mL/hr, 1,000 mL, IV Infusion, ONCE, 1 dose, On 01/12/22 at 1345, STAT [facility] ondansetron (ZOFRAN (PF)) injection 4 mg 2021-03 19:45: 00 01-12 20:19 :00 No 4mg 4 mg, Slow IV Push, ONCE, 1 dose, On 01/12/22 at 1345, CUAUHTEMOC [facility] ondansetron 4 mg disintegrat ing tablet 2021-03 00:00: 00 Yes [id number] 4mg Take 1 tablet by mouth every 8 (eight) hours as needed for Nausea and Vomiting (N/V) for up to 15 doses. [facility] doxycycline hyclate 100 mg capsule 2021-03 00:00: 00 Yes [id number] 100mg Take 1 capsule by mouth in the morning and 1 capsule in the evening. [facility] levoFLOXaci n (LEVAQUIN) 500 mg tablet 2021-03 00:00: 00 01-23 05:59 :00 No [id number] 500mg Take 1 tablet by mouth every 24 (twenty-fo ur) hours for 10 days. [facility] traMADoL 50 mg tablet 2021-03 00:00: 00 01-17 00:00 :00 No [id number] 50mg Take 1 tablet by mouth every 6 (six) hours as needed for Pain (scale 4-6) for up to 15 doses. Indication s: acute pain [facility] diclofenac 75 mg EC tablet 2021-03 00:00: 00 Yes TAKE 1 TABLET BY MOUTH TWICE DAILY NEEDED [facility] Vital Signs Vital Name Observation Time Observation Value Comments S teresa Systolic blood pressure 2024-10-23 15:13:34 161 mm[Hg] [facility] Diastolic blood pressure 2024-10-23 15:13:34 81 mm[Hg] [facility] Heart rate 2024-10-23 15:13:34 69 /[facility] Body temperature 2024-10-23 15:13:34 37 Evi [facility] Respiratory rate 2024-10-23 15:13:34 16 /min [facility] Oxygen saturation in Arterial blood by Pulse oximetry 2024-10-23 15:13:34 95 /min [facility] Body height 2024-10-23 14:27:00 175.3 cm [facility] Body weight 2024-10-23 14:27:00 120.203 kg [facility] BMI 2024-10-23 14:27:00 39.13 kg/m2 [facility] Systolic blood pressure 2022-02-14 22:29:00 144 mm[Hg] [facility] Diastolic blood pressure 2022-02-14 22:29:00 66 mm[Hg] [facility] Heart rate 2022-02-14 22:29:00 67 /min [facility] Body temperature 2022-02-14 22:29:00 36.83 Evi [facility] Respiratory rate 2022-02-14 22:29:00 18 /min [facility] Body height 2022-02-14 22:29:00 180.3 cm [facility] Body weight 2022-02-14 22:29:00 125.011 kg [facility] BMI 2022-02-14 22:29:00 38.44 kg/m2 [facility] Oxygen saturation in Arterial blood by Pulse oximetry 2022-02-14 22:29:00 98 /min [facility] Systolic blood pressure 2022-01-27 19:05:00 156 mm[Hg] [facility] Diastolic blood pressure 2022-01-27 19:05:00 92 mm[Hg] [facility] Heart rate 2022-01-27 19:05:00 78 /min [facility] Body temperature 2022-01-27 19:05:00 36.56 Evi [facility] Respiratory rate 2022-01-27 19:05:00 18 /min [facility] Body height 2022-01-27 19:05:00 180.3 cm [facility] Body weight 2022-01-27 19:05:00 130.182 kg [facility] BMI 2022-01-27 19:05:00 40.03 kg/m2 [facility] Oxygen saturation in Arterial blood by Pulse oximetry 2022-01-27 19:05:00 98 /min [facility] Systolic blood pressure 2022-01-17 16:10:00 130 mm[Hg] [facility] Diastolic blood pressure 2022-01-17 16:10:00 88 mm[Hg] [facility] Heart rate 2022-01-17 16:10:00 80 /min [facility] Body temperature 2022-01-17 16:10:00 36.89 Evi [facility] Respiratory rate 2022-01-17 16:10:00 20 /min [facility] Body height 2022-01-17 16:10:00 180.3 cm [facility] Body weight 2022-01-17 16:10:00 130.182 kg [facility] BMI 2022-01-17 16:10:00 40.03 kg[facility]m2 [facility] O[facility] saturation in Arterial blood by Pulse oximetry 2022-01-17 16:10:00 96 /min [facility] Systolic blood pressure 2022-01-12 23:00:00 161 mm[Hg] [facility] Diastolic blood pressure 2022-01-12 23:00:00 86 mm[Hg] Nelson [facility] Heart rate 2022-01-12 23:00:00 62 /min [facility] Respiratory rate 2022-01-12 20:55:00 18 /min [facility] Oxygen saturation in Arterial blood by Pulse oximetry 2022-01-12 20:55:00 95 /min [facility] Body temperature 2022-01-12 20:25:00 36.67 Evi [facility] Body height 2022-01-12 19:26:00 180.3 cm [facility] Body weight 2022-01-12 19:26:00 140.615 kg [facility] BMI 2022-01-12 19:26:00 43.24 kg/m2 [facility] Procedures Procedure Date / Time Performed Performing Clinician Source DISABILITY/FMLA 2022-02-18 06:01:00 Doctor Unass igned, Daphne [facility] POCT URINALYSIS AUTO 2022-01-27 19:34:00 Trinidad Boucher [facility] PATIENT QUESTIONNAIRE 2022-01-27 06:01:00 Doctor Unassigned, Daphne [facility] URINALYSIS 2022-01-12 21:09:00 Bipin [facility] US TESTICULAR TORSION 2022-01-12 20:36:17 Radhames Burrows [facility] COMP. METABOLIC PANEL ([id number]) 2022-01-12 20:20:00 Bipin Burrows [facility] CBC WITH DIFF 2022-01-12 20:20:00 [facility]AST 2022-01-12 19:49:05 Bipin Burrows [facility] CONSENT/REFUSAL FOR DIAGNOSIS AND TREATMENT 2022-01-12 19:04:08 Doctor Unassigned, Daphne [facility] NOTICE OF PRIVACY PRACTICES 2022-01-12 19:03:20 Doctor Unassigned, Daphne [facility] Encounters Start Date/Time End Date/Time Encounter Type Admission Type Attending Clinicians Care Facility Care Department Encounter ID Source 2024-10-23:31:00 2024-10-23 10:31:00 Emergency X [facility] ERT [id number] [facility] 2022-04-18 11:30:00 2022-04-18 11:30:00 Outpatient R RAISSA HENDRICKSON [facility] [id number] [facility] 2022-03-04 00:00:00 2022-03-04 00:00:00 Telephone Raissa Hendrickson [facility] 1..840.114 350.1.13.10 4.2.7.2.686 [id number] [facility] 2022-02-18 00:00:00 2022-02-18 00:00:00 Orders Only Doctor Unassigned, Daphne [facility] 1.84.114 350.1.13.10 4.2.7.2.686 [id number] [facility] 2022-02-14 16:00:00 2022-02-14 17:09:23 Outpatient R RAISSA HENDRICKSON [facility] [id number] [facility] 2022-02-14 16:00:00 2022-02-14 17:09:23 Office Visit Raissa Hendrickson [facility] 1.2.840.114 350.1.13.10 4.2.7.2.686 [id number] [facility] 2022-02-07 00:00:00 2022-02-07 00:00:00 Patient Outreach Mary Sherman [facility] 1.2.840.114 350.1.13.10 4.2.7.2.686 [id number] [facility] 2022-02-07 00:00:00 2022-02-07 00:00:00 Telephone Raissa Hendrickson [facility] 1.2.840.114 350.1.13.10 4.2.7.2.686 [id number] [facility] 2022-01-27 13:30:00 2022-01-27 14:08:54 [facility] [id number] 2022-01-27 13:30:00 2022-01-27 14:08:54 Office Visit Sander [facility] 1.2.840.114 350.1.13.10 4.2.7.2.686 [id number] [facility] 2022-01-27 00:00:00 2022-01-27 00:00:00 Orders Only Doctor Unassigned, Daphne [facility] 1.2.840.114 350.1.13.10 4.2.7.2.686 [id number] [facility] 2022-01-24 00:00:00 2022-01-24 00:00:00 Telephone Raissa Hendrickson [facility] 1.2.840.114 350.1.13.10 4.2.7.2.686 [id number] [facility] 2022-01-22 09:45:00 2022-01-22 09:45:00 Outpatient R AMISHA RODRIGUEZ [facility] [id number] [facility] 2022-01-17 10:00:00 2022-01-17 11:47:26 [facility] 1.2.840.114 350.1.13.10 4.2.7.2.686 [id number] [facility] 2022-01-17 10:00:00 2022-01-17 11:47:26 Outpatient R MADHAVI, RAISSA MADHAVI, RAISSA [facility] [id number] [facility] 2022-01-12 13:30:00 2022-01-12 17:45:00 Emergency X [facility] E[facility] [id number] [facility] 2022-01-12 13:30:00 2022-01-12 17:45:00 Emergency Behzadi, Bipin [facility] 1.2.840.114 350.1.13.10 4.2.7.2.686 [id number] [facility] Results Test Description Test Time Test Comments Results Result Co mments Source [facility], [id number] 19:35:00 * Test Item Value Reference Range Interpretation Comme nts POCT U SP GRAV (test code = 3255) 1.025 mg/dl 1.005-1.025 POCT PH U (test code = 3254) 6.0 mg/dl 5-8 POCT U LEUK EST (test code = 3263) Negative Negative - Negative POCT U NIT (test code = 3262) Negative Negative - Negati ve POCT U PROT (test code = 3259) Negative - Negative A POCT U GLU (test code = 3256) Negative Negative - Negati ve POCT U KETONE (test code = 3258) Trace Negative - Negative A POCT U UROBILI (test code = 3260) 0.2 mg/dl 0.2-1 POCT U BILI (test code = 3261) small Negative - Negative A POCT U BLD (test code = 3257) Small Negative - Negati ve A POCT U COLOR (test code = 3266) Lisa POCT U APPEAR (test code = 3267) Clear Lab Interpretation (test cod e = 87226-1) Abnormal [facility], [id number] 19:35:00 * Test Item Value Reference Range Interpretation Comme nts POCT U SP GRAV (test code = 3255) 1.025 mg/dl 1.005-1.025 POCT PH U (test code = 3254) 6.0 mg/dl 5-8 POCT U LEUK EST (test code = 3263) Negative Negative - Negative POCT U NIT (test code = 3262) Negative Negative - Negati ve POCT U PROT (test code = 3259) Negative - Negative A POCT U GLU (test code = 3256) Negative Negative - Negati ve POCT U KETONE (test code = 3258) Trace Negative - Negative A POCT U UROBILI (test code = 3260) 0.2 mg/dl 0.2-1 POCT U BILI (test code = 3261) small Negative - Negative A POCT U BLD (test code = 3257) Small Negative - Negati ve A POCT U COLOR (test code = 3266) Lisa POCT U APPEAR (test code = 3267) Clear Lab Interpretation (test cod e = [id number]) Abnormal [facility] Notes Date/Time Note Provider Source 2024-10-23 10:17:53 Patient given discharge instructions on ear and skin problem. Given prescriptions X 3 for prednisone, ketoconazole and bactrim. Pt advised to follow up with pcp. Pt left ER ambulatory no signs of distress. Trisha Mariscal RN [facility] 2024-10-23 09:24:07 Patient to ED complaining of left ear pain with discharges/ pus started last . Denies loss of hearing but muffled. He also complain of skin redness and itching all over his body including his scalp that also started last . A Urena RN [facility]
[2024-11-03 14:45] LABS: Urine Microscopic Reflex YN NO UMIC
[2024-11-03 14:49] LABS: Absolute Lymphocytes (CBC) 1.4 K/uL (0.7-4.9); Hematocrit 42.8 % (39.6-49.0); Hemoglobin 14.7 g/dL (13.6-17.9); MCH 33.8 pg (27.0-35.0); MCHC 34.3 g/dL (32.0-36.0); MCV 98.6 fL (80-100); MPV 7.6 fL (7.6-11.3); Nucleated RBC Absolute Count 0.0 (0-0); Nucleated Red Blood Cells % 0.1 % (0-0); RBC Red Blood Cell Count 4.34 M/uL (4.33-5.43); White Blood Count 6.10 thou/uL (4.3-10.9)
[2024-11-03 14:52] LABS: PT Prothrombin Time 11.1 SECONDS (10-13.0); Protime INR 0.98
[2024-11-03 15:12] LABS: ALT/SGPT 35 U/L (16-61); AST/SGOT 20 U/L (15-37); Albumin 3.2 g/dL (3.4-5.0); Albumin/Globulin Ratio 0.9 (1.1-1.8); Alkaline Phosphatase 94 U/L (45-117); Anion Gap 9.8 mEq/L (5.0-15.0); BUN Blood Urea Nitrogen 6 mg/dL (7-18); Globulin 3.5 g/dL (2.3-3.5); Glucose Level 117 mg/dL (74-106); Magnesium 2.3 mg/dL (1.6-2.4); NT PRO-BNP 154 pg/mL (<125); Potassium 3.8 mEq/L (3.5-5.1); Troponin High Sensitivity 6.5 pg/mL (<58.9)
[2024-11-03 15:13] LABS: Bilirubin Indirect, Calculated 0.2 mg/dL (0.2-0.8)
[2024-11-03] MEDS ORDERED: FUROSEMIDE 20 MG/ 2ML VIAL ONE (15:15)
--- NOTE | 2024-11-03 16:10 | RAD REPORT ---
EXAMINATION: ONE VIEW CHEST XR CLINICAL INDICATION: Male, 59 years old.,SOB TECHNIQUE: Frontal chest projection is submitted. Examination is limited by patient positioning and t echnique. COMPARISON: 10/02/2020 FINDINGS: The lungs are well inflated with interval improvement of patchy bilateral airspace opacities. Mild re sidual interstitial Central prominence. No pneumothorax or sizable effusion. The heart is moderately enlarged in size. Mediastinal contours are unremarkable. IMPRESSION: Mild residual central interstitial prominence could reflect mild central congestion. Patchy airspace opacities seen on the prior exam have since improved. Moderate cardiomegaly.
[2024-11-03] MEDS ORDERED: ALBUTEROL 2.5 MG/3 ML NEB SOL ONE (16:12)
[2024-11-03] MEDS ORDERED: IPRATROPIUM BROM 0.5MG/2.5ML ONE (16:13)
--- NOTE | 2024-11-03 16:17 | RAD REPORT ---
EXAMINATION: US Extrem Venous W Compress Keny CLINICAL INDICATION: [facility] MAIN Pain;Swelling Bed Name: 16 N TECHNIQUE: Complete bilateral duplex sonography of the BILATERAL lower extremity veins was performed. The examination included compression for vein patency, color Doppler imaging and flow augmentation in response to distal compression of the distal external iliac, common femoral, femoral, popliteal, t ibial, and great and small saphenous veins. COMPARISON: No prior exam. FINDINGS: Duplex sonography testing of the veins of the BILATERAL lower extremity was performed. Color flow kostas ging shows all veins to be compressible with [id number] color filling. Pulsatile and phasic flow is present within all lower extremity deep and superficial veins examined. IMPRESSION: There is no deep vein or superficial vein thrombosis.
--- NOTE | 2024-11-03 17:20 | EDPHYS ---
Physician Documentation [facility] Name: Livan Pantoja Age: 59 yrs Sex: Male : 1965 Arrival Date: 11/03/2024 Time: 14:04 Bed 16 Private MD: ED Physician Corby Salazar HPI: 11/03 14:25 This 59 yrs old Male presents to ER via EMS with complaints of Feet Swelling, Shortness cp Of Breath. 14:25 The patient has shortness of breath with light activity. Onset: The symptoms/episode cp began/occurred this morning. Associated signs and symptoms: Pertinent positives: chest pain, lower extremity swelling. 14:25 Duration: The symptoms are continuous, and are unchanged since they started. cp Historical: - Allergies: 14:24 PENICILLINS; nh2 - PMHx: 14:24 Anxiety; Hypertension; RENAL FAILURE; nh2 - Immunization history:: Adult Immunizations up to date. - Infectious Disease History:: Denies. - Social history:: Smoking status: Patient reports use of chewing tobacco. ROS: 14:29 Constitutional: Negative for fever, cp 14:29 Cardiovascular: Positive for chest pain, edema, 14:29 Respiratory: Positive for shortness of breath, on exertion. Negative for cough, wheezing, 14:29 Abdomen/GI: Negative for abdominal pain, vomiting, diarrhea, constipation, 14:29 Eyes: Negative for injury, pain, redness, and discharge, cp 14:29 ENT: Negative for drainage from ear(s), ear pain, sore throat, difficulty swallowing, difficulty handling secretions, 14:29 Neuro: Negative for altered mental status, dizziness, headache, weakness, 14:29 All other systems are negative, cp Exam: 14:32 ECG was reviewed by the Attending Physician. cp 14:35 Constitutional: The patient appears in no acute distress, alert, awake, cp non-diaphoretic, non-toxic, well developed, well nourished, 14:35 Head/Face: Normocephalic, atraumatic. cp 14:35 Eyes: Periorbital structures: appear normal, Conjunctiva: normal, no exudate, no injection, Sclera: no appreciated abnormality, Lids and lashes: appear normal, bilaterally, 14:35 ENT: External ear(s): are unremarkable, Nose: is normal, Mouth: Lips: moist, Oral mucosa: moist, Posterior pharynx: Airway: no evidence of obstruction, patent, 14:35 Neck: ROM/movement: is normal, is supple, without pain, no range of motions limitations, 14:35 Chest/axilla: Inspection: normal, 14:35 Cardiovascular: Rate: normal, Rhythm: regular, Edema: pedal edema, that is mild, ankle edema, that is moderate, JVD: is not appreciated, 14:35 Respiratory: the patient does not display signs of respiratory distress, Respirations: normal, no use of accessory muscles, no retractions, labored breathing, is not present, Breath sounds: are clear throughout, no decreased breath sounds, no stridor, no wheezing, 14:35 Abdomen/GI: Inspection: abdomen appears normal, Palpation: abdomen is soft and non-tender, in all quadrants, 14:35 Back: pain, is absent, ROM is normal, 14:35 Skin: cellulitis, is not appreciated, no rash present. 14:35 Neuro: Orientation: to person, place \T\ time. Mentation: is normal, Cerebellar function: is grossly normal, Motor: moves all fours, strength is normal, Sensation: is normal, Vital Signs: 14:20 BP 141 / 51; Pulse 88; Resp 23; Pulse Ox 95% on R/A; Weight 122.47 kg; Height 5 ft. 11 nh2 in. ; Pain 0/10; 15:20 BP 141 / 51; Pulse 86; Resp 23; Pulse Ox 96% on R/A; nh2 16:19 BP 140 / 62; Pulse 80; Resp 18 S; Temp 97.8(A); Pulse Ox 99% on Nebulizer Mask; aa5 17:26 BP 125 / 66; Pulse 77; Resp 20; Pulse Ox 94% on R/A; nh2 14:20 Body Mass Index 37.66 (122.47 kg, 180.34 cm) nh2 14:20 Pain Scale: Adult nh2 MDM: 14:09 Medical Screening Exam initiated yuli 17:19 Data reviewed: vital signs, nurses notes, lab test result(s), EKG, radiologic studies, cp plain films, ultrasound, and as a result, I will discharge patient. 17:19 Differential diagnosis: pulmonary edema, Pulmonary Embolism chf, cellulitis, dvt. I cp considered the following discharge prescriptions or medication management in the emergency department Medications were administered in the Emergency Department. See MAR. Care significantly affected by the following chronic conditions: Hypertension. Counseling: I had a detailed discussion with the patient and/or guardian regarding the historical points, exam findings, and any diagnostic results supporting the discharge/admit diagnosis, lab results, radiology results, the need for outpatient follow up, a family practitioner, to return to the emergency department if symptoms worsen or persist or if there are any questions or concerns that arise at home. Response to treatment: the patient's symptoms have mildly improved after treatment, and as a result, I will discharge patient. 11/03 14:19 Order name: Basic Metabolic Panel; Complete Time: 15:14 11/03 15:14 Interpretation: Normal except: CL 108; GLUC 117; BUN 6; CA 8.1. 11/03 14:19 Order name: CBC with Diff; Complete Time: 15:01 11/03 15:01 Interpretation: Normal except: RDW 16.6; EOSINOPHIL % 4.8. 11/03 14:19 Order name: LFT's; Complete Time: 15:14 11/03 15:15 Interpretation: Normal except: ALB 3.2; A/G 0.9. 11/03 14:19 Order name: Magnesium; Complete Time: 15:14 11/03 14:19 Order name: NT PRO-BNP; Complete Time: 15:14 11/03 15:15 Interpretation: Reviewed. 11/03 14:19 Order name: PT-INR; Complete Time: 15:01 11/03 15:02 Interpretation: Reviewed. 11/03 14:19 Order name: Troponin HS; Complete Time: 15:14 11/03 15:15 Interpretation: Reviewed. 11/03 14:19 Order name: UA Rfx Ameya Cult if indicated; Complete Time: 15:01 11/03 15:02 Interpretation: Reviewed. 11/03 16:42 Order name: Troponin High Sensitivity; Complete Time: 17:18 cp 11/03 17:18 Interpretation: Reviewed. 11/03 14:19 Order name: XRAY Chest (1 view); Complete Time: 16:20 cp 11/03 14:20 Order name: US Extremity Venous W Compression Keny; Complete Time: 16:20 11/03 14:19 Order name: Cardiac monitoring; Complete Time: 14:31 cp 11/03 14:19 Order name: EKG - Nurse/Tech; Complete Time: 14:31 cp 11/03 14:19 Order name: IV Saline Lock; Complete Time: 14:39 cp 11/03 14:19 Order name: Labs collected and sent; Complete Time: 14:32 cp 11/03 14:19 Order name: O2 Per Protocol; Complete Time: 14:32 cp 11/03 14:19 Order name: O2 Sat Monitoring; Complete Time: 14:32 cp EC:32 Rate is 85 beats/min. Rhythm is regular. AL interval is normal. QRS interval is normal. cp QT interval is normal. T waves are Inverted in leads aVL, aVR. Interpreted by me. Reviewed by me. Administered Medications: 15:25 Drug: Furosemide IVP 20 mg IVP once; give over 2 minutes Route: IVP; Site: left aa5 antecubital; 15:35 Follow up: Response: No adverse reaction aa5 16:19 Drug: Albuterol Inhalation 2.5 mg Inhalation once Route: Inhalation; aa5 16:50 Follow up: Response: No adverse reaction nh2 16:19 Drug: Ipratropium Inhalation Aerosol 0.5 mg Inhalation once Route: Inhalation; aa5 16:50 Follow up: Response: No adverse reaction nh2 Disposition: 11/04 13:40 Co-signature as Attending Physician, Corby Salazar MD I agree with the assessment and yuli plan of care. Disposition Summary: 11/03/24 17:19 Discharge Ordered Notes: Location: Home cp Problem: new cp Symptoms: have improved cp Condition: Stable cp Diagnosis - Edema, unspecified cp - Shortness of breath cp Followup: cp - With: Ronaldo Morales MD - When: 2 - 3 days - Reason: Recheck today's complaints Discharge Instructions: - Discharge Summary Sheet cp - Shortness of Breath, Adult cp - Aspirin and Your Heart cp - Peripheral Edema cp - How to Use Compression Stockings cp Forms: - Medication Reconciliation Form cp - Antibiotic Education cp - Prescription Opioid Use cp - Patient Portal Instructions cp - Leadership Thank You Letter cp Prescriptions: - Lasix 20 mg Oral tablet - take 1 tablet ORAL route once daily for 5 days; 5 tablet; Refills: 0, Product cp Selection Permitted Signatures: Dispatcher [employer] Corby Olsen MD MD cha Calderon, Audri, RN RN aa5 Corby Broderick PA-C PA-C cp Farrukh Jr, Lupillo, RN RN nh2 Corrections: (The following items were deleted from the chart) 11/03 14:20 14:20 Extrem Venous W Compression Keny+US.RAD.BRZ ordered. EDMS EDMS 16:42 16:42 Troponin High Sensitivity+C.LAB.BRZ ordered. EDMS EDMS
--- NOTE | 2024-11-03 17:20 | ER ---
Nurse's Notes [facility] Name: Livan Pantoja Age: 59 yrs Sex: Male : 1965 Arrival Date: 11/03/2024 Time: 14:04 Bed 16 Private MD: Diagnosis: Edema, unspecified;Shortness of breath Presentation: 11/03 14:20 Chief complaint: Patient states: c/o feet swelling bilaterally and dyspnea on exertion nh2 that started this morning. Coronavirus screen: At this time, the client does not indicate any symptoms associated with coronavirus-19. Ebola Screen: Patient denies travel to an Ebola-affected area in the 21 days before illness onset. No symptoms or risks identified at this time. Initial Sepsis Screen: Does the patient meet any 2 criteria? RR > 20 per min. No. Patient's initial sepsis screen is negative. Does the patient have a suspected source of infection? No. Patient's initial sepsis screen is negative. Risk Assessment: Do you want to hurt yourself or someone else? Patient reports no desire to harm self or others. Onset of symptoms was November 03, 2024. 14:20 Method Of Arrival: EMS: [facility] nh2 14:20 Acuity: MARYSOL 3 nh2 Triage Assessment: 14:24 General: Appears in no apparent distress. Behavior is cooperative, appropriate for age, nh2 anxious, Denies fever, feeling ill, fatigue. Pain: Denies pain. EENT: No signs and/or symptoms were reported regarding the EENT system. Neuro: Level of Consciousness is awake, alert, obeys commands, Oriented to person, place, time, situation, Appropriate for age. Cardiovascular: Reports swelling of feet bilaterally since this morning Patient's skin is warm and dry. Edema is 2+ to left ankle, left foot, right ankle and right foot pitting to left ankle, left foot, right ankle and right foot Rhythm is regular. Respiratory: Airway is patent Respiratory effort is even, unlabored, Respiratory pattern is regular, symmetrical, tachypnea Onset: The symptoms/episode began/occurred this morning, the patient has mild shortness of breath. Respiratory:. Respiratory: Reports shortness of breath on exertion. GI: Abdomen is round non-distended, Patient currently denies diarrhea, nausea, vomiting. : No signs and/or symptoms were reported regarding the genitourinary system. Denies burning with urination. Derm: Skin is intact, is healthy with good turgor, Reports. Musculoskeletal: Range of motion: intact in all extremities. Historical: - Allergies: 14:24 PENICILLINS; nh2 - PMHx: 14:24 Anxiety; Hypertension; RENAL FAILURE; nh2 - Immunization history:: Adult Immunizations up to date. - Infectious Disease History:: Denies. - Social history:: Smoking status: Patient reports use of chewing tobacco. Screenin:32 [facility] ED Fall Risk Assessment (Adult) History of falling in the last 3 months, nh2 including since admission No falls in past 3 months (0 pts) Confusion or Disorientation No (0 pts) Intoxicated or Sedated No (0 pts) Impaired Gait No (0 pts) Mobility Assist Device Used No (0 pt) Altered Elimination No (0 pt) Score/Fall Risk Level 0 - 2 = Low Risk. [facility] ED Fall Risk Assessment (Adult) Score/Fall Risk Level 0 - 2 = Low Risk Oriented to surroundings, Maintained a safe environment, Educated pt \T\ family on fall prevention, incl call for assistance when getting out of bed, Assessed \T\ reinforced patient's understanding of fall precautions. Abuse screen: Denies threats or abuse. Denies injuries from another. Nutritional screening: No deficits noted. Tuberculosis screening: No symptoms or risk factors identified. Assessment: 14:20 Respiratory: Airway is patent Trachea midline Respiratory effort is even, unlabored, nh2 Breath sounds with crackles bilaterally. 14:20 General: Appears in no apparent distress. Behavior is cooperative, appropriate for age, nh2 anxious, Denies fever, feeling ill, fatigue. Pain: Denies pain. Neuro: Level of Consciousness is awake, alert, obeys commands, Oriented to person, place, time, situation. Cardiovascular: Patient's skin is warm and dry. Edema is 2+ to right foot and left foot. GI: No signs and/or symptoms were reported involving the gastrointestinal system. : No signs and/or symptoms were reported regarding the genitourinary system. EENT: No signs and/or symptoms were reported regarding the EENT system. Derm: Skin is intact. Musculoskeletal: Range of motion: intact in all extremities. 15:05 Reassessment: No changes from previously documented assessment. Patient and/or family nh2 updated on plan of care and expected duration. Pain level reassessed. Patient is alert, oriented x 3, equal unlabored respirations, skin warm/dry/pink. 15:45 Reassessment: US at bedside. nh2 16:31 Reassessment: Patient and/or family updated on plan of care and expected duration. Pain nh2 level reassessed. Patient is alert, oriented x 3, equal unlabored respirations, skin warm/dry/pink. 18:30 Reassessment: Patient is alert, oriented x 3, equal unlabored respirations, skin aa5 warm/dry/pink. Vital Signs: 14:20 BP 141 / 51; Pulse 88; Resp 23; Pulse Ox 95% on R/A; Weight 122.47 kg; Height 5 ft. 11 nh2 in. ; Pain 0/10; 15:20 BP 141 / 51; Pulse 86; Resp 23; Pulse Ox 96% on R/A; nh2 16:19 BP 140 / 62; Pulse 80; Resp 18 S; Temp 97.8(A); Pulse Ox 99% on Nebulizer Mask; aa5 17:26 BP 125 / 66; Pulse 77; Resp 20; Pulse Ox 94% on R/A; nh2 14:20 Body Mass Index 37.66 (122.47 kg, 180.34 cm) nh2 14:20 Pain Scale: Adult nh2 ED Course: 14:04 Patient arrived in ED. bc6 14:09 [facility]ick [facility]. cp 14:09 Corby Salazar MD is Attending Physician. cp 14:19 Lupillo Chawdick Jr, IVÁN is Primary Nurse. nh2 14:24 Triage completed. nh2 14:24 Arm band placed on left wrist. nh2 14:32 Patient has correct armband on for positive identification. Provided Education on: nh2 using call light for assistance. 14:39 Basic Metabolic Panel Sent. aa5 14:39 CBC with Diff Sent. aa5 14:39 LFT's Sent. aa5 14:39 Magnesium Sent. aa5 14:39 NT PRO-BNP Sent. aa5 14:39 PT-INR Sent. aa5 14:39 Troponin HS Sent. aa5 14:39 Inserted saline lock: 20 gauge in left forearm, using aseptic technique. Blood aa5 collected. Flushed with 10 mL NS. 15:02 XRAY Chest (1 view) In Process Unspecified. EDMS 16:05 US Extremity Venous W Compression Keny In Process Unspecified. EDMS 17:18 Ronaldo Morales MD is Referral Physician. cp 18:30 No provider procedures requiring assistance completed. IV discontinued, intact, aa5 bleeding controlled, No redness/swelling at site. Pressure dressing applied. Administered Medications: 15:25 Drug: Furosemide IVP 20 mg IVP once; give over 2 minutes Route: IVP; Site: left aa5 antecubital; 15:35 Follow up: Response: No adverse reaction aa5 16:19 Drug: Albuterol Inhalation 2.5 mg Inhalation once Route: Inhalation; aa5 16:50 Follow up: Response: No adverse reaction nh2 16:19 Drug: Ipratropium Inhalation Aerosol 0.5 mg Inhalation once Route: Inhalation; aa5 16:50 Follow up: Response: No adverse reaction nh2 Medication: 16:08 VIS not applicable for this client. nh2 Output: 16:19 Urine: 1200ml (Voided); Total: 1200ml. aa5 16:30 Urine: 900ml (Voided); Total: 2100ml. nh2 Outcome: 17:19 Discharge ordered by MD. cp 18:30 Discharged to home ambulatory, aa5 18:30 Condition: stable 18:30 Discharge instructions given to patient, Instructed on discharge instructions, follow up and referral plans. medication usage, Demonstrated understanding of instructions, follow-up care, medications, Prescriptions given X 1, 18:31 Patient left the ED. aa5 Signatures: Dispatcher [employer] EDMS Tessa Richard RN RN aa5 Corby Broderick PA-C PARufina Puckett cp bc6 Lupillo Chadwick Jr RN RN nh2 Corrections: (The following items were deleted from the chart) 14:35 14:24 Cardiovascular: Reports swelling of feet bilaterally since this morning Patient's nh2 skin is warm and dry. Rhythm is regular nh2 16:08 14:20 Reassessment: see triage. nh2 nh2 16:10 14:20 Cardiovascular: nh2 nh2 16:31 14:20 Cardiovascular: Edema is 2+ to right foot and left foot nh2 nh2
[2024-11-04 00:37] VITALS: TEMP 97.8
[2024-11-04 00:39] VITALS: BP 125/66; O2SAT 94
== END 2024-11-03 18:31 | disposition home or self-care (01) ==
LOC: ER 14:04
DX: R60.9 Edema, unspecified (principal); R06.02 Shortness of breath; R07.9 Chest pain, unspecified; F17.220 Nicotine dependence, chewing tobacco, uncomplicated
CPT/HCPCS: 36415; 71045; 80048; 80076; 81003; 83735; 83880; 84484; 85025; 85610; 93005; 93970; 96374; 99285; J1938; J7613; J7644